=== PATIENT | female | born 1965 | race Caucasian/White ===

== ENCOUNTER 2016-05-13 13:55 | Emergency (ER) | payer OTHER, BC ==
[2016-05-13 14:05] VITALS: TEMP 98.8; BMI 25.0
[2016-05-13] MEDS ORDERED: HYDROmorphone HCL CARPU-JECT 2 MG/1 ML DISP.SYRIN IVPUSH ONE ×2 (14:39→17:13)
[2016-05-13] MEDS ORDERED: HYDROmorphone HCL CARPU-JECT 1 MG/1 ML DISP.SYRIN ONE ×2 (15:25→17:18)
[2016-05-13 15:29] LABS: BASOPHIL 0.9 % (0-2.0); EOSINOPHIL 3.4 % (0-4.5); MCH 26.1 pg (25.7-33.7); MCHC 32.3 g/dl (32.0-36.0); MEAN CELL VOLUME 80.9 fl (80-96); MEAN PLT VOLUME 11.1 fl (7.5-11.1); PLATELET COUNT 118 K/MM3 (134-434); WHITE BLOOD COUNT 6.7 K/mm3 (4.0-10.0)
--- NOTE | 2016-05-13 15:32 | PDOC ---
History of Present Illness - General Chief Complaint: Injury Stated Complaint: ANKLE PAIN Time Seen by Provider: 05/13/16 14:11 History Source: Patient Exam Limitations: No Limitations - History of Present Illness Initial Comments: 05/13/16 14:53 51-year-old female presents to the ED with complaints of left ankle and left posterior calf pain worsening in severity over the past 2 days. Patient states went to Dr. Casarez's office to told her to come to the ER for further evaluation since patient just recently completed Levaquin and prednisone and is also on Eliquis which was concerning for an Achilles tendon rupture. Patient denies recent injury to the affected area, sensory changes distal of discomfort, or difficulty breathing. Timing/Duration: getting worse, other (2 days) Severity: moderate Associated Symptoms: reports: other (troubling walking) Past History - Past Medical History Allergies/Adverse Reactions: Allergies Allergy/AdvReac Type Severity Reaction Status Date / Time metoclopramide HCl Allergy Severe Verified 05/13/16 14:16 [From Reglan] morphine AdvReac Severe Rash Verified 05/13/16 14:16 prochlorperazine edisylate AdvReac Severe Nausea Verified 05/13/16 14:16 [From Compazine] ciprofloxacin [From Cipro] AdvReac Intermediate Nausea Verified 05/13/16 14:16 erythromycin base AdvReac Intermediate Nausea Verified 05/13/16 14:16 [Erythromycin Base] Home Medications: Ambulatory Orders Amlodipine Besylate [Norvasc -] 5 mg PO DAILY 05/13/16 Apixaban [Eliquis] 2.5 mg PO BID 05/13/16 Carvedilol [Coreg] 25 mg PO DAILY 05/13/16 Esomeprazole Magnesium [Nexium 24Hr] 20 mg PO DAILY 05/13/16 Losartan Potassium 25 mg PO DAILY 05/13/16 Pregabalin [Lyrica] 100 mg PO BID 05/13/16 Simvastatin [Zocor -] 20 mg PO HS 05/13/16 Tacrolimus [Prograf] 1 mg PO BID 05/13/16 Asthma: Yes (asthma, bronchitis) Cancer: No Cardiac Disorders: Yes ([place] at age 18, s/p PCI) COPD: No GI Disorders: Yes (IBS,SIGMOID ADENOMA 2008 , BARRETTTS ESOPHAGUS, ESOPHAGEAL REFLUX) Disorders: Yes (UTI) HTN: Yes Hypercholesterolemia: Yes Suicide Attempt (Hx): No Thyroid Disease: Yes (THYROMEGALY W/ NORMAL THYROID FUCTION) - Surgical History Abdominal Surgery: Yes (GASTROSTOMY) Cardiac Surgery: Yes (DEFIB/PACEMAKER) - Immunization History Td Vaccination: Yes Immunization Up to Date: Yes - Psycho/Social/Smoking Cessation Hx Anxiety: Yes Suicidal Ideation: No Smoking Status: No Smoking History: Never smoked Years of Tobacco Use: 0 Have you smoked in the past 12 months: No Number of Cigarettes Smoked Daily: 0 Cigars Per Day: 0 Hx Alcohol Use: No Drug/Substance Use Hx: No Substance Use Type: None Hx Substance Use Treatment: No Patient Lives Alone: No Lives with/in: sister Review of Systems - Review of Systems Able to Perform ROS?: Yes Constitutional: No: Symptoms Reported Musculoskeletal: Yes: Joint Pain (left posterior ankle), Muscle Pain (left lower calf) Integumentary: Yes: Bruising Neurological: No: Symptoms reported Hematologic/Lymphatic: Yes: See HPI *Physical Exam - Vital Signs Last Vital Signs Temp Pulse Resp BP Pulse Ox 98.8 F 81 20 168/95 96 05/13/16 14:02 05/13/16 14:02 05/13/16 14:02 05/13/16 14:02 05/13/16 14:02 - Physical Exam General Appearance: Yes: Nourished, Appropriately Dressed. No: Apparent Distress Vascular Pulses: Doralis-Pedis (L): 2+ Extremity: positive: Normal Capillary Refill, Pedal Edema (1 + pitting). negative: Normal Inspection (noted edema to left mallelous), Normal Range of Motion (unable to dorsiflex left ankle) Integumentary: positive: Bruising (noted to posterior mallelous and heel) Neurologic: positive: Motor Strength 5/5 (ambulatory). negative: Sensory Deficit ED Treatment Course - LABORATORY CBC & Chemistry Diagram: 05/13/16 14:51 05/13/16 14:51 - ADDITIONAL ORDERS Additional order review: 05/13/16 14:51 RBC 4.31 MCV 80.9 MCHC 32.3 RDW 17.0 H D MPV 11.1 Neutrophils % 71.0 Lymphocytes % 19.1 D Monocytes % 5.6 Eosinophils % 3.4 D Basophils % 0.9 D - RADIOLOGY Radiology Studies Ordered: Category Date Time Status DUPLEX VASCUL US-1 LEG [US] Stat Ultrasound 05/13/16 14:45 Ordered - Medications Given in the ED: ED Medications Discontinued Medications Generic Name Dose Route Start Last Admin Trade Name Arnie PRN Reason Stop Dose Admin Hydromorphone HCl 0.5 mg 05/13/16 14:39 05/13/16 15:30 Dilaudid Injection - IVPUSH 05/13/16 14:40 0.5 mg ONCE ONE Administration Medical Decision Making - Medical Decision Making 05/13/16 14:54 Patient with left ankle and left heel pain over the past 2 days. Patient states no obvious injury or previous injury. Patient was seen by Dr. Salcedo who referred her to the ER secondary to likely Achilles tendon rupture. Patient ordered for basic labs including an ultrasound of the affected area and Dilaudid IV since patient has allergies to morphine and has history of kidney transplant 05/13/16 17:13 Laboratory Tests 05/13/16 05/13/16 05/13/16 14:51 14:51 14:51 WBC 6.7 Hgb 11.3 Hct 34.9 Plt Count 118 L Neutrophils % 71.0 INR 1.40 H D Sodium 144 Potassium 4.8 Chloride 111 H Carbon Dioxide 25 Anion Gap 8 BUN 25 H D Creatinine 1.2 H Random Glucose 100 D Total Bilirubin 0.4 AST 12 L D ALT 11 L D Ultrasound shows along the calcaneal region medially noted is hypoechoic nonspecific fluid collections / cyst measuring 1.3 x 1.3 x 1 cm. Regards to the Achilles tendon as well as a previous describes small fluid structure MRI evaluation suggested nonemergent unless otherwise clinically indicated. Case discussed with Dr. Salcedo who agrees patient may be discharged home with Tylenol, orthopedic shoe, [place] wrap and orthopedic referral. Patient requesting a second dose of Dilaudid and does not want Percocet to go home with. *DC/Admit/Observation/Transfer Diagnosis at time of Disposition: Achilles tendon injury Qualifiers: Encounter type: initial encounter Laterality: left Qualified Code(s): S86.002A - Unspecified injury of left Achilles tendon, initial encounter - Discharge Dispostion Disposition: HOME Condition at time of disposition: Good - Referrals Referrals: Jose Salcedo MD [Primary Care Provider] - Ishaan Huang MD [Staff Physician] - - Patient Instructions Printed Discharge Instructions: DI for Achilles Tendon Rupture, Achilles Tendinopathy Additional Instructions: Please take Tylenol 975 mg every 6-8 hours for discomfort apply ice, and use acewrap during the day but remove at night. Follow-up with referred orthopedist. Follow up with Dr. Casarez as discussed and return to ED if symptoms worsen
[2016-05-13 15:43] LABS: INR 1.4 (0.82-1.09); PROTHROMBIN TIME (PATIENT) 15.5 SEC (9.98-11.88)
[2016-05-13 15:56] LABS: ALBUMIN 3.6 g/dl (3.4-5.0); BILIRUBIN,TOTAL 0.4 mg/dL (0.2-1.0); CALCIUM 8.6 mg/dL (8.5-10.1); CREATININE 1.2 mg/dL (0.55-1.02); TOT PROT 6.6 g/dl (6.4-8.2)
[2016-05-13 17:42] VITALS: BP 149/70; PULSE 76
== END 2016-05-13 17:48 | disposition home or self-care (01) ==
LOC: SUPCPDRO 13:55 → JER 13:55
PROC: 3E033NZ Introduction of Analgesics, Hypnotics, Sedatives into Peripheral Vein, Percutaneous Approach (ICD-10-PCS; principal; 2016-05-13)
PROC: 3E033NZ Introduction of Analgesics, Hypnotics, Sedatives into Peripheral Vein, Percutaneous Approach (ICD-10-PCS; 2016-05-13)
DX: S86.092A Other specified injury of left Achilles tendon, initial encounter (principal); X58.XXXA Exposure to other specified factors, initial encounter; Y93.9 Activity, unspecified; Y92.019 Unspecified place in single-family (private) house as the place of occurrence of the external cause; J45.909 Unspecified asthma, uncomplicated; I25.2 Old myocardial infarction; I10 Essential (primary) hypertension; E78.00 Pure hypercholesterolemia, unspecified; Z87.19 Personal history of other diseases of the digestive system; Z95.810 Presence of automatic (implantable) cardiac defibrillator; Z93.1 Gastrostomy status
CPT/HCPCS: 36415; 80053; 85025; 85610; 93971-TC; 96374; 96376; 99285-25

== ENCOUNTER 2017-07-24 15:34 | Emergency (ER) | payer BC, OTHER ==
[2017-07-24 16:04] VITALS: BP 117/88; PULSE 78; TEMP 98.3; BMI 25.8
--- NOTE | 2017-07-24 17:04 | PDOC ---
*Physical Exam - Vital Signs Last Vital Signs Temp Pulse Resp BP Pulse Ox 98.3 F 78 16 117/88 100 07/24/17 16:01 07/24/17 16:01 07/24/17 16:01 07/24/17 16:01 07/24/17 16:01 - Physical Exam Comments: She has full range of motion of both shoulders and hips as well as her knees without tenderness. Her only complaint is left great toe tenderness. She is tender over the IPJ of the great toe is decreased range of motion without any gross sensorimotor deficits. 07/24/17 17:04 ED Treatment Course - RADIOLOGY Radiology Studies Ordered: Category Date Time Status ANKLE & FOOT-LEFT* [RAD] Stat Radiology 07/24/17 16:47 Ordered Medical Decision Making - Medical Decision Making Excises left foot great toe show no evidence of fracture trauma or obstructive process 07/24/17 17:11 *DC/Admit/Observation/Transfer Diagnosis at time of Disposition: Sprain of toe, great, left - Discharge Dispostion Disposition: HOME Condition at time of disposition: Stable Decision to Admit order: No - Referrals Referrals: Jose Salcedo MD [Primary Care Provider] - Ishaan Huang MD [Staff Physician] - - Patient Instructions Printed Discharge Instructions: Toe Sprain, DI for Toe Sprain Additional Instructions: He may weight-bear as tolerated follow up with orthopedic surgery return to the emergency room symptoms worsen or go unresolved. Or if she developed new symptoms. - Post Discharge Activity
== END 2017-07-24 17:16 | disposition home or self-care (01) ==
LOC: JERFT 15:34 → JER 15:34 → JERFT 17:16
DX: S93.512A Sprain of interphalangeal joint of left great toe, initial encounter (principal); X58.XXXA Exposure to other specified factors, initial encounter; Y93.9 Activity, unspecified; Y92.89 Other specified places as the place of occurrence of the external cause; Y99.8 Other external cause status
CPT/HCPCS: 73610-TC-LT-FY; 73630-TC-LT; 99281-25

== ENCOUNTER 2017-07-27 13:29 | Emergency (ER) | payer BC, OTHER ==
[2017-07-27] MEDS ORDERED: ACETAMINOPHEN 500 MG TABLET (FP) PO ONE (14:34)
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
[2017-07-27] MEDS ORDERED: diazePAM 5 MG TABLET PO ONE (14:48)
[2017-07-27] MEDS ORDERED: ACETAMINOPHEN 325 MG TABLET (FP) ONE (15:20)
[2017-07-27] MEDS ORDERED: diazePAM 5 MG TABLET ONE (15:21)
[2017-07-27 15:36] VITALS: BP 169/86; PULSE 70; TEMP 98.3; BMI 24.2
--- NOTE | 2017-07-28 11:57 | EKG ---
Test Reason : Blood Pressure : / mmHG Vent. Rate : 072 BPM Atrial Rate : 072 BPM P-R Int : 162 ms QRS Dur : 138 ms QT Int : 432 ms P-R-T Axes : 014 -08 119 degrees QTc Int : 473 ms Atrial-sensed ventricular-paced rhythm ABNORMAL ECG Confirmed by MD BENTON, DOREEN ([id number]) on 07/28/2017 11:56:21 AM Referred By: Confirmed By:DOREEN BHARDWAJ MD
== END 2017-07-27 16:51 | disposition home or self-care (01) ==
LOC: JER 13:29
DX: V03.90XA Pedestrian on foot injured in collision with car, pick-up truck or van, unspecified whether traffic or nontraffic accident, initial encounter (principal); Y92.481 Parking lot as the place of occurrence of the external cause; Y93.89 Activity, other specified; Y99.8 Other external cause status; I25.10 Atherosclerotic heart disease of native coronary artery without angina pectoris; I10 Essential (primary) hypertension; Z95.5 Presence of coronary angioplasty implant and graft; J45.909 Unspecified asthma, uncomplicated; I48.91 Unspecified atrial fibrillation; Z95.810 Presence of automatic (implantable) cardiac defibrillator; Z93.1 Gastrostomy status
CPT/HCPCS: 71045-TC-FY; 72100-TC-FY; 73523-TC-FY; 73562-TC-LT-FY; 93005; 93010; 99281-25

== ENCOUNTER 2019-10-27 20:39 | Inpatient (IN) | payer OTHER, BC ==
[2019-10-27] MEDS ORDERED: AMIODARONE HCL INJECTION 450 MG in DEXTROSE 5%-WATER - 241 ML IVPB ONE (21:02)
[2019-10-27] MEDS ORDERED: AMIODARONE HCL INJECTION 150 MG in DEXTROSE 5%-WATER - 100 ML IVPB ONE (21:02)
[2019-10-27] MEDS ORDERED: ACETAMINOPHEN INJECTION 100 ML IVPB ONE (21:19)
[2019-10-27] MEDS ORDERED: ACETAMINOPHEN 1000 MG/100 ML VIAL (NON FORMULARY) IVPB ONE (21:20)
[2019-10-27 21:31] LABS: BASO % 1.3 % (0-2.0); EOS % 5.4 % (0-4.5); HEMATOCRIT 40.7 % (32.4-45.2); HEMOGLOBIN 13.4 GM/dL (10.7-15.3); MCH 29.4 pg (25.7-33.7); MEAN CELL VOLUME 89.1 fl (80-96); MEAN PLT VOLUME 11.2 fl (7.5-11.1); MONO % 8.6 % (3.8-10.2); NEUT % 57.7 % (42.8-82.8); PLATELET COUNT 134 K/MM3 (134-434); RBC 4.57 M/mm3 (3.60-5.2); RDW 14.7 % (11.6-15.6); WHITE BLOOD COUNT 4.5 K/mm3 (4.0-10.0)
[2019-10-27 21:32] LABS: VENOUS BASE EXCESS -1.6 mmol/L (-2-2); VENOUS O2 SATURATION 94.7 % (70-80); VENOUS PCO2 38.9 mmHg (38-52); VENOUS PH 7.39 (7.310-7.410)
[2019-10-27 21:38] LABS: INR 0.87 (0.83-1.09); PROTHROMBIN TIME (PATIENT) 10.3 SEC (9.7-13.0)
[2019-10-27 21:40] LABS: ACTIVATED PTT 34.8 SECONDS (25.2-36.5)
[2019-10-27] MEDS ORDERED: AMIODARONE HCL 150 MG/3 ML VIAL ONE (21:41)
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
--- NOTE | 2019-10-27 21:51 | PDOC ---
History of Present Illness - General Chief Complaint: Chest Pain Stated Complaint: POSSIBLE HEART FAILURE Time Seen by Provider: 10/27/19 20:54 History Source: Patient Exam Limitations: No Limitations - History of Present Illness Initial Comments: 10/27/19 23:49 54F PMH CAD s/p AICD, HTN, HLD, CKD s/p renal transplant (prograft), chronic bronchitis sent in by Pediatric Radiologist for 1 day of right sided chest pain, substernal chest pressure, and shortness of breath. Pt was shocked by AICD (medtronic) yesterday, found by radio engineering teacher to have been in VF. No recent f/c/n/v. allergies reviewed. Past History - Medical History Allergies/Adverse Reactions: Allergies Allergy/AdvReac Type Severity Reaction Status Date / Time metoclopramide HCl Allergy Severe Verified 07/27/17 14:07 [From Reglan] morphine AdvReac Severe Rash Verified 07/27/17 14:07 prochlorperazine edisylate AdvReac Severe Nausea Verified 07/27/17 14:07 [From Compazine] ciprofloxacin [From Cipro] AdvReac Intermediate Nausea Verified 07/27/17 14:07 erythromycin base AdvReac Intermediate Nausea Verified 07/27/17 14:07 [Erythromycin Base] Home Medications: Ambulatory Orders Pregabalin [Lyrica] 100 mg PO BID 05/13/16 Tacrolimus [Prograf] 1 mg PO BID 05/13/16 Amlodipine Besylate 10/27/19 Esomeprazole Magnesium [Nexium 24Hr] 40 mg PO DAILY 10/27/19 Metoprolol Tartrate 75 mg PO BID 10/27/19 Asthma: Yes (asthma, bronchitis) Cancer: No Cardiac Disorders: Yes (MT at age 18, s/p PCI) COPD: No GI Disorders: Yes (IBS,SIGMOID ADENOMA 2008 , BARRETTTS ESOPHAGUS, ESOPHAGEAL REFLUX) Disorders: Yes (UTI) HTN: Yes Hypercholesterolemia: Yes Thyroid Disease: Yes (THYROMEGALY W/ NORMAL THYROID FUCTION) - Surgical History Abdominal Surgery: Yes (GASTROSTOMY) Cardiac Surgery: Yes (DEFIB/PACEMAKER) - Immunization History Td Vaccination: Yes Immunization Up to Date: Yes - Psycho-Social/Smoking History Smoking Status: No Smoking History: Never smoked Years of Tobacco Use: 0 Have you smoked in the past 12 months: No Number of Cigarettes Smoked Daily: 0 Cigars Per Day: 0 - Substance Abuse Hx (Audit-C & DAST Scrn) How often the patient has a drink containing alcohol: Never Score: In Men: 4 or > Positive; In Women: 3 or > Positive: 0 Screen Result (Pos requires Nsg. Audit-10AR): Negative Review of Systems - Review of Systems Comments:: 10/27/19 23:49 CONSTITUTIONAL: Denies F / C RESP: +sob; chronic cough CARD: + chest pain GI: Denies N / V LIMITED 2/2 ACUITY *Physical Exam - Vital Signs Last Vital Signs Temp Pulse Resp BP Pulse Ox 98.3 F 94 H 20 115/76 94 L 10/27/19 20:43 10/27/19 20:43 10/27/19 20:43 10/27/19 20:43 10/27/19 20:43 - Physical Exam 10/27/19 23:49 GEN: uncomfortable. AAOx3. HEENT: NC/AT. No facial asymmetry. Normal voice. Supple neck w/ FROM. CV: S1/S2, RRR, no m/r/g. AICD palpated on Right chest wall - tender. LUN% SaO2 on 4L NC. Speaks in few word sentences with increased respiratory effort. Orthopnic. CTAB, no wheezes, crackles, rales, rhonchi. GI: Soft, ndnt, +BS, no guarding, no rebound. No masses. MSK: No obvious deformities of all extremities. SKIN: Warm, dry, no rashes appreciated. PSYCH: Normal mood and affect. NEURO: Moving all extremities ED Treatment Course - LABORATORY CBC & Chemistry Diagram: 10/27/19 21:15 10/27/19 21:15 - ADDITIONAL ORDERS Additional order review: Laboratory Results 10/27/19 10/27/19 21:15 21:15 PT with INR 10.30 INR 0.87 PTT (Actin FS) 34.8 VBG pH 7.390 POC VBG pCO2 38.9 POC VBG pO2 73.6 H VBG HCO3 23.0 VBG O2 Sat ([place]) 94.7 H VBG Base Excess -1.6 10/27/19 21:15 RBC 4.57 MCV 89.1 MCHC 33.0 RDW 14.7 D MPV 11.2 H Neutrophils % 57.7 Lymphocytes % 27.0 D Monocytes % 8.6 Eosinophils % 5.4 H Basophils % 1.3 - RADIOLOGY Radiology Studies Ordered: Category Date Time Status CHEST X-RAY PORTABLE* [RAD] Stat Radiology 10/27/19 20:55 Ordered - Medications Given in the ED: ED Medications Discontinued Medications Generic Name Dose Route Start Last Admin Trade Name Arnie PRN Reason Stop Dose Admin Acetaminophen 1,000 mg 10/27/19 21:20 10/27/19 21:24 Ofirmev Injection - IVPB 10/27/19 21:21 1,000 mg ONCE ONE Administration Medical Decision Making - Medical Decision Making 10/27/19 21:50 54F w/ cp and sob; was shocked yesterday by AICD 2/2 VF. - labs - engine monitor - cxr - Dr. Edin sarabia Cardiology Dr. Mena - aware, rec amio and lasix - low threshold for BiPAP - bedside US w/o florid b-lines - patient took PM dose of prograft - admit EKG 20:56 HR 69, paced, no ALAN/D or TWI versus 07/27/17 EKG. 10/27/19 22:10 Dr. Edin Dasilva - renal aware 10/27/19 23:40 pt still c/o pain - giving 0.5mg dilaudid. Will give additional 0.5mg if not sufficient pain control. endorsed to hospitalist team for admission Discharge - Discharge Information Problems reviewed: Yes Clinical Impression/Diagnosis: Renal transplant recipient, Pain, Ischemic cardiomyopathy, Heart failure, Chest pain, Dyspnea, Ventricular dysrhythmia Condition: Guarded - Admission Yes - Follow up/Referral Referrals: Jose Salcedo MD [Primary Care Provider] - - Patient Discharge Instructions - Post Discharge Activity
[2019-10-27 22:05] LABS: ALK PHOS 98 U/L (45-117); ANION GAP 5 MMOL/L (8-16); BILIRUBIN,TOTAL 0.3 mg/dL (0.2-1); BLOOD UREA NITROGEN 26.5 mg/dL (7-18); CALCIUM 9.5 mg/dL (8.5-10.1); CHLORIDE 109 mmol/L (98-107); CO2 27 mmol/L (21-32); CREATININE 1.3 mg/dL (0.55-1.3); GLUCOSE,RANDOM 121 mg/dL (74-106); POTASSIUM 5.3 mmol/L (3.5-5.1); SGOT/AST 20 U/L (15-37); SGPT/ALT 17 U/L (13-61); SODIUM 142 mmol/L (136-145); TOT PROT 7.3 g/dl (6.4-8.2)
[2019-10-27] MEDS ORDERED: FUROSEMIDE 40 MG/4 ML INJECTABLE VIAL IVPUSH ONE (22:10)
[2019-10-27 22:36] LABS: MAGNESIUM 1.9 mg/dL (1.8-2.4)
[2019-10-27] MEDS ORDERED: FUROSEMIDE 40 MG/4 ML INJECTABLE VIAL ONE (23:03)
--- NOTE | 2019-10-27 23:10 | PN ---
Teaching Attending Note Name of Resident: Sangita Acharya ATTENDING PHYSICIAN STATEMENT I saw and evaluated the patient. I reviewed the resident's note and discussed the case with the resident. I agree with the resident's findings and plan as documented. SUBJECTIVE: Patient is a 54 year old woman with a PMH of Kidney transplant, CAD, Cataracts, Neuropathy, Pacemaker placement, Pulmonary hemorrhage due to Eliquis (long stay in ICU; reversed tracheostomy), Afib, Asthma, [place] (at age 18 s/p PCI), IBS, Sigmoid adenoma (age 18), Lundy's esophagus and Thyromegaly who presents to the ER with right-sided chest pain and SOB that started today. She saw her core placer, Dr. Vasquez 2 days ago - was in Vtach and Afib and was shocked. Reports a chronic cough that she has been present for the past 3 years. Patient denies abdominal pain, headache, palpitations, dizziness, fever, chills, nausea, vomiting, diarrhea, constipation, dysuria, frequency, urgency, melena, hematochezia or hematuria. Denies alcohol, tobacco or illicit drug use. No sick contacts or recent travels. Family history of aneurysm in brother; father had CABG and mother TN both in their 60s. OBJECTIVE: Alert Vital Signs Period Temp Pulse Resp BP Sys/Bass Pulse Ox Last 24 Hr 98.3 F 94 20 115/76 94 HEENT: No Jaundice, eye redness or discharge, PERRLA, EOMI. Normocephalic, atraumatic. External ears are normal and hearing is grossly intact. No nasal discharge. Neck: Supple, nontender. No palpable adenopathy or thyromegaly. No JVD Chest: Good effort. Pacemaker right chest wall; chest wall tenderness; bibasilar crackles. Heart: Regular. No S3, rub or murmur Abdomen: Not distended, soft, nontender and no HSM. No rebound or guarding. Normal bowel sounds. Ext: Peripheral pulses intact. Leg edema. Right arm AV fistula with good thrill and bruit. Skin: Warm and dry. No petechiae, rash or ecchymosis. Neuro: Alert. Oriented x3. CN 2-12 grossly intact. Sensation grossly intact in all four extremities and DTR are symmetric. Psych: Appropriate mood and affect. Good insight. Home Medications Medication Instructions Recorded Pregabalin [Lyrica] 100 mg PO BID 05/13/16 Tacrolimus [Prograf] 1 mg PO BID 05/13/16 Amlodipine Besylate 10/27/19 Esomeprazole Magnesium [Nexium 40 mg PO DAILY 10/27/19 24Hr] Metoprolol Tartrate 75 mg PO BID 10/27/19 Abnormal Lab Results 10/27/19 10/27/19 10/27/19 21:15 21:15 21:15 MPV 11.2 H Eosinophils % 5.4 H POC VBG pO2 VBG O2 Sat ([place]) Potassium 5.3 H Chloride 109 H Anion Gap 5 L BUN 26.5 H Random Glucose 121 H B-Natriuretic Peptide 1626.2 H 10/27/19 21:15 MPV Eosinophils % POC VBG pO2 73.6 H VBG O2 Sat ([place]) 94.7 H Potassium Chloride Anion Gap BUN Random Glucose B-Natriuretic Peptide Current Medications Generic Name Dose Route Start Last Admin Trade Name Freq PRN Reason Stop Dose Admin Amiodarone HCl 450 mg/ 250 mls @ 33.333 mls/hr 10/27/19 21:02 10/27/19 22:00 Dextrose IVPB 10/28/19 04:31 1 mg/min TITR ONE 33.333 mls/hr Administration Protocol 1 MG/MIN ASSESSMENT AND PLAN: 1. Chest pain/?CHF - Chest pain and ?CHF may be related to recent arrhythmia. EKG shows atrial-sensed ventricular-paced rhythm at 69/minute and QTc [address]-T wave changes. Initial troponin is negative. Will avoid drugs that may prolong QTc. CXR shows cardiomegaly, right side pacemaker, increased interstitial markings and elevated right hemidiaphragm. ER staff discussed the case with the Metal Slitter and patient started on IV Amiodarone drip and IV Lasix. Will admit to telemetry, trend troponin, get ECHO, treat with IV Lasix to achieve adequate diuresis, restrict dietary salt intake, monitor renal function, monitor and replete electrolytes, get daily weight and consult Cardiology. Mild hyperkalemia is unexplained but should improve with IV Lasix. Viral testing for COVID-19 ordered and patient placed on airborne, droplet and contact isolation. Will continue comprehensive care for all of patients comorbid conditions. 2. Hypertension Will restart suitable outpatient antihypertensive drugs when clinically appropriate. Subsequently, will revise regimen to ensure [id number] excellent BP control. Patient counseled on the injurious effects of uncontrolled hypertension. Nonpharmacologic measures to control hypertension like weight loss, salt restriction and exercise stressed. Importance of adherence to treatment regimen and attainment of normotension emphasized. 3. DVT prophylaxis - Lovenox 40 mg SQ q 24 hours. 4. Advance directives - Full code
[2019-10-27] MEDS ORDERED: HYDROmorphone HCL CARPU-JECT 2 MG/1 ML DISP.SYRIN IVPUSH ONE (23:30)
[2019-10-27] MEDS ORDERED: HYDROmorphone HCl 2 MG/ML VIAL ONE (23:32)
[2019-10-28 01:12] LABS: URINE APPEARANCE CLEAR; URINE BILIRUBIN NEGATIVE (NEGATIVE); URINE COLOR YELLOW; URINE GLUCOSE (UA) NEGATIVE (NEGATIVE); URINE KETONE NEGATIVE (NEGATIVE); URINE LEUK ESTERASE NEGATIVE (NEGATIVE); URINE NITRITE NEGATIVE (NEGATIVE); URINE PROTEIN NEGATIVE (NEGATIVE); URINE UROBILINOGEN 0.2 mg/dL (0.2-1.0)
[2019-10-28] MEDS ORDERED: ACETAMINOPHEN INJECTION 100 ML IVPB ONE (03:40)
[2019-10-28] MEDS ORDERED: ACETAMINOPHEN 1000 MG/100 ML VIAL (NON FORMULARY) IVPB ONE (03:45)
--- NOTE | 2019-10-28 05:26 | HP ---
CHIEF COMPLAINT: R sided and substernal CP and shortness of breath PCP: Dr. Salcedo HISTORY OF PRESENT ILLNESS: Pt is a 54 yo F with a PMH of kidney transplants (in 1997 and 2004), CAD, cataracts, neuropathy, pacemaker (AICD) placement, pulmonary hemorrhage due to eliquis (long stay in ICU; reversed tracheostomy), Afib, Asthma, [place] (at age 18 s/p PCI), IBS, Sigmoid adenoma (age 18), Lundy's esophagus and Thyromegaly who presents to the ER with right-sided and substernal chest pain with SOB that started today. She saw her language therapist, Dr. Vasquez 2 days ago - was in Vtach and Afib and was shocked by her pacemaker. She reports a chronic cough that she has been present for the past 3 years. Both types of chest pain started earlier on 10/27/2019. R sided chest pain is 5/10 and reproducible with palpation; substernal CP 6/10 initially, constant pressure like and radiating to L arm. Progressively worsened to 9/10. A/w SOB, nausea, slight increase in LE edema, fatigue, fatigue, and orthopnea. No PND. Denies fevers, chills, diarrhea, constipation, weakness, or decrease in appetite. No urinary changes as well. Pt did not take anything to improve the pain. Decided to come to the ED after pain and SOB progressively worsened. Pt's pain now 5/10. ER course was notable for: (1)Cardiology consulted by ED; amiodarone drip and IV lasix recommended and then started. (2)Nephrology consulted by ED Recent Travel: none Sick contacts: none PAST MEDICAL HISTORY: as per HPI PAST SURGICAL HISTORY: as per HPI Family Hx - mother with LA in 60s; father with coronary bypass in 60s Social History: Lives at home with mother; unemployed since kidney transplants. Smoking:denies Alcohol:denies Drugs: denies Allergies metoclopramide HCl [From Reglan] Allergy (Severe, Verified 07/27/17 14:07) TREMORS morphine Adverse Reaction (Severe, Verified 07/27/17 14:07) Rash prochlorperazine edisylate [From Compazine] Adverse Reaction (Severe, Verified 07/27/17 14:07) Nausea ciprofloxacin [From Cipro] Adverse Reaction (Intermediate, Verified 07/27/17 14:07) Nausea erythromycin base [Erythromycin Base] Adverse Reaction (Intermediate, Verified 07/27/17 14:07) Nausea HOME MEDICATIONS: Home Medications Medication Instructions Recorded Pregabalin [Lyrica] 100 mg PO BID 05/13/16 Tacrolimus [Prograf] 1 mg PO BID 05/13/16 Amlodipine Besylate 10/27/19 Esomeprazole Magnesium [Nexium 40 mg PO DAILY 10/27/19 24Hr] Metoprolol Tartrate 75 mg PO BID 10/27/19 Tacrolimus Anhydrous [Prograf] 1.5 mg PO DAILY 10/28/19 REVIEW OF SYSTEMS as per hpi. PHYSICAL EXAMINATION Vital Signs - 24 hr 10/27/19 10/27/19 20:43 23:37 Temperature 98.3 F Pulse Rate 94 H Pulse Rate [ 63 Right] Respiratory 20 18 Rate Blood Pressure 115/76 Blood Pressure 154/71 [Right Arm] O2 Sat by Pulse 94 L 100 Oximetry (%) GENERAL: Awake, alert, and fully oriented, in no acute distress. Appears older than her age. HEAD: Normal with no signs of trauma. EYES: Pupils equal, round and reactive to light, extraocular movements intact, sclera anicteric, conjunctiva clear. EARS, NOSE, THROAT: oropharynx clear without exudates. Moist mucous membranes. NECK: Normal range of motion, supple without lymphadenopathy LUNGS: Crackles at bilateral bases. No accessory muscle use. Chest: generalized tenderness over chest; worse on R side near side of pacemaker HEART: Regular rate and rhythm, normal S1 and S2 without murmur, rub or gallop. ABDOMEN: Soft, nontender, not distended, normoactive bowel sounds. MUSCULOSKELETAL: Moving all extremities equally and spontaneously UPPER EXTREMITIES: 2+ pulses, warm, well-perfused. No peripheral edema. L forearm fistula with bruit and thrill. LOWER EXTREMITIES: 2+ pulses, warm, well-perfused. No calf tenderness. Trace pitting edema just above ankles b/l NEUROLOGICAL: Sensation intact b/l. Normal speech. Normal gait. PSYCHIATRIC: Cooperative. Good eye contact. Appropriate mood and affect. SKIN: Warm, dry, normal turgor, no rashes or lesions noted. Laboratory Results - last 24 hr 10/27/19 10/27/19 10/27/19 21:15 21:15 21:15 WBC 4.5 RBC 4.57 Hgb 13.4 Hct 40.7 D MCV 89.1 MCH 29.4 D MCHC 33.0 RDW 14.7 D Plt Count 134 MPV 11.2 H Absolute Neuts (auto) 2.6 Neutrophils % 57.7 Lymphocytes % 27.0 D Monocytes % 8.6 Eosinophils % 5.4 H Basophils % 1.3 Nucleated RBC % 0 PT with INR 10.30 INR 0.87 PTT (Actin FS) 34.8 VBG pH POC VBG pCO2 POC VBG pO2 VBG HCO3 VBG O2 Sat ([place]) VBG Base Excess Sodium 142 Potassium 5.3 H Chloride 109 H Carbon Dioxide 27 Anion Gap 5 L BUN 26.5 H Creatinine 1.3 Est GFR (CKD-EPI)AfAm 53.48 Est GFR (CKD-EPI)NonAf 46.15 Random Glucose 121 H Calcium 9.5 Magnesium 1.9 Total Bilirubin 0.3 AST 20 ALT 17 Alkaline Phosphatase 98 Creatine Kinase 49 Troponin I < 0.02 B-Natriuretic Peptide Total Protein 7.3 Albumin 4.0 TSH 2.73 Urine Color Urine Appearance Urine pH Ur Specific Lamar Urine Protein Urine Glucose (UA) Urine Ketones Urine Blood Urine Nitrite Urine Bilirubin Urine Urobilinogen Ur Leukocyte Esterase Blood Type Antibody Screen 10/27/19 10/27/19 10/27/19 21:15 21:15 21:15 WBC RBC Hgb Hct MCV MCH MCHC RDW Plt Count MPV Absolute Neuts (auto) Neutrophils % Lymphocytes % Monocytes % Eosinophils % Basophils % Nucleated RBC % PT with INR INR PTT (Actin FS) VBG pH 7.390 POC VBG pCO2 38.9 POC VBG pO2 73.6 H VBG HCO3 23.0 VBG O2 Sat ([place]) 94.7 H VBG Base Excess -1.6 Sodium Potassium Chloride Carbon Dioxide Anion Gap BUN Creatinine Est GFR (CKD-EPI)AfAm Est GFR (CKD-EPI)NonAf Random Glucose Calcium Magnesium Total Bilirubin AST ALT Alkaline Phosphatase Creatine Kinase Troponin I B-Natriuretic Peptide 1626.2 H Total Protein Albumin TSH Urine Color Urine Appearance Urine pH Ur Specific Lamar Urine Protein Urine Glucose (UA) Urine Ketones Urine Blood Urine Nitrite Urine Bilirubin Urine Urobilinogen Ur Leukocyte Esterase Blood Type O POSITIVE Antibody Screen Negative 10/28/19 10/28/19 00:37 03:36 WBC RBC Hgb Hct MCV MCH MCHC RDW Plt Count MPV Absolute Neuts (auto) Neutrophils % Lymphocytes % Monocytes % Eosinophils % Basophils % Nucleated RBC % PT with INR INR PTT (Actin FS) VBG pH POC VBG pCO2 POC VBG pO2 VBG HCO3 VBG O2 Sat ([place]) VBG Base Excess Sodium Potassium Chloride Carbon Dioxide Anion Gap BUN Creatinine Est GFR (CKD-EPI)AfAm Est GFR (CKD-EPI)NonAf Random Glucose Calcium Magnesium Total Bilirubin AST ALT Alkaline Phosphatase Creatine Kinase Troponin I < 0.02 B-Natriuretic Peptide Total Protein Albumin TSH Urine Color Yellow Urine Appearance Clear Urine pH 5.0 Ur Specific Lamar 1.007 L Urine Protein Negative Urine Glucose (UA) Negative Urine Ketones Negative Urine Blood Negative Urine Nitrite Negative Urine Bilirubin Negative Urine Urobilinogen 0.2 Ur Leukocyte Esterase Negative Blood Type Antibody Screen ASSESSMENT/PLAN: Pt is a 54 yo F with a PMH of kidney transplants (in 1997 and 2004), CAD, cataracts, neuropathy, pacemaker (AICD) placement, pulmonary hemorrhage due to eliquis (long stay in ICU; reversed tracheostomy), Afib, Asthma, [place] (at age 18 s/p PCI), IBS, Sigmoid adenoma (age 18), Lundy's esophagus and Thyromegaly who presents to the ER with right-sided chest as well as substernal chest pain and SOB that started today. Pt being admitted for evaluation and treatment of possible unstable angina as well as a possible CHF exacerbation. #Chest Pain (possible unstable angina) initial trop neg; no EKG changes but with substernal pressure like pain radiating to L arm may be associated with recent arrhythmia r/o ACS - trend trops, EKG in the AM - IV tylenol for pain - ASA 81 #Possible CHF exacerbation (may be associated with recent arrythmia) no ECHO previous ECHO in EMR BNP 1626.2 CXR showing cardiomegaly, right side pacemaker, increased interstitial markings and elevated right hemidiaphragm - Cardiology consulted by ED; IV amiodarone drip and IV lasix 40 recommended - IV lasix 40 bid ordered for now; adjust as per day team/cardiology discretion - stricts Is/Os - daily weights - ECHO ordered #Mild hyperK (5.3) - asymptomatic, no EKG changes - renal diet - should improve with lasix #Kidney transplant hx - home prograf 1.5 mg AM; 1 mg PM #HTN Hx - home metoprolol 75 bid - home amlodipine dose not confirmed; can start after confirmation #Neuropathy hx (etiology unknown) - home lyrica 100 mg bid #DVT PPx - SCDs for now (mechanical ppx with hx of long icu stay for pulm hemorrhage on eliquis) #FEN -F- no IVF for now -E- monitor lytes, replete PRN -N- low sodium, renal diet #Dispo - Admit to telemetry Family Medical History Family History: As Documented Visit type - Emergency Visit Emergency Visit: Yes ED Registration Date: 10/27/19 Care time: The patient presented to the Emergency Department on the above date and was hospitalized for further evaluation of their emergent condition. - New Patient This patient is new to me today: Yes Date on this admission: 10/28/19 - Critical Care Critical Care patient: No ATTENDING PHYSICIAN STATEMENT I saw and evaluated the patient. I reviewed the resident's note and discussed the case with the resident. I agree with the resident's findings and plan as documented. SUBJECTIVE: OBJECTIVE: ASSESSMENT AND PLAN:
[2019-10-28 05:44] LABS: ALK PHOS 85 U/L (45-117); ANION GAP 8 MMOL/L (8-16); BILIRUBIN,TOTAL 0.4 mg/dL (0.2-1); BLOOD UREA NITROGEN 25.6 mg/dL (7-18); CALCIUM 9.6 mg/dL (8.5-10.1); CHLORIDE 106 mmol/L (98-107); CO2 27 mmol/L (21-32); CREATININE 1.4 mg/dL (0.55-1.3); GLUCOSE,RANDOM 171 mg/dL (74-106); MAGNESIUM 1.8 mg/dL (1.8-2.4); PHOSPHOROUS 4.7 mg/dL (2.5-4.9); POTASSIUM 4.9 mmol/L (3.5-5.1); SGOT/AST 26 U/L (15-37); SGPT/ALT 16 U/L (13-61); SODIUM 140 mmol/L (136-145); TOT PROT 7.2 g/dl (6.4-8.2)
[2019-10-28] MEDS ORDERED: FUROSEMIDE 40 MG/4 ML INJECTABLE VIAL ONE ×2 (06:12→15:00)
[2019-10-28] MEDS ORDERED: AMIODARONE IN DEXTROSE,ISO-OSM 360 MG/200 ML BAG IVPB SCH (06:15)
[2019-10-28] MEDS: FUROSEMIDE 40 MG/4 ML INJECTABLE VIAL IVPUSH SCH ×2 (06:31→15:00)
[2019-10-28] MEDS ORDERED: AMIODARONE IN DEXTROSE,ISO-OSM 360 MG/200 ML BAG ONE (06:34)
[2019-10-28] MEDS ORDERED: PANTOPRAZOLE 40 MG TABLET ONE (06:42)
[2019-10-28] MEDS: PANTOPRAZOLE 40 MG TABLET PO SCH ×2 (07:10→07:16)
--- NOTE | 2019-10-28 07:54 | CON.CARD ---
Consult Consult Specialty:: Cardiology Referred by:: Hospitalist Medicine Reason for Consultation:: Ischemic cardiomyopathy - History of Present Illness Chief Complaint: Dyspnea, ICD shock History of Present Illness: 54-year-old female with history of coronary artery disease status post myocardial infarction at age 18 status post percutaneous coronary intervention/report of procedure not available angina pectoris, systolic left ventricular dysfunction related to ischemic dilated cardiomyopathy with chronic class I-II [place] Heart Association classification left ventricular failure (LVEF between 20-25% on echocardiography performedApril 28, 2019), sustained ventricular tachycardia post USER EXPERIENCE MANAGER-D/[employer] MRI conditional device (Amplia MRI- [id number]/SureScan), paroxysmal atrial fibrillation currently off of anticoagulation therapy related to hemoptysis [id number] score of 4 (Hemoptysis noted on Eliquis therapy)-(left atrial appendage closure device implantation/Watchman device implantation was recommended as an alternative but patient thus far has declined), paroxysmal supraventricular tachycardia cannot exclude paroxysmal atypical atrial flutter, mitral valve regurgitation mild to moderate in severity on echocardiography performed March 10, 2018/mild in severity on echocardiography performed April 28, 2019, tricuspid valve regurgitation trace in severity with no evidence of pulmonary hypertension on echocardiography performed March 10, 2018/April 28, 2019-RVSP of 14 mm Hg, hypertensive cardiovascular disease/labile blood pressure, hypercholesterolemia, trace pericardial effusion on echocardiography performed March 10, 2018, seizure disorder, chronic bronchitis, gastroesophageal reflux disease with Lundy's esophagus and chronic kidney disease post renal transplantation who last was [id number]/12/2020 for appropriate ICD shock c/w paroxysmal ventricular tachycardia presented to ED for right-sided chest pain and SOB associated with orthopnea, denies recurrent ICD shock, palpitations, near or true syncope, receiving IV diuresis and afterload reduction. 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), Renal Inusuff - Past Surgical History Past Surgical History: Yes: Hysterectomy, Kidney Transplant (times two 1997, 2004), Permanent Pacemaker (defibrillator) - Alcohol/Substance Use Hx Alcohol Use: No History of Substance Use: reports: None - Smoking History Smoking history: Never smoked Have you smoked in the past 12 months: No Aproximately how many cigarettes per day: 0 - Social History Usual Living Arrangement: With Parent ADL: Family Assistance Occupation: unemployed History of Recent Travel: No Home Medications - Allergies Allergies/Adverse Reactions: Allergies Allergy/AdvReac Type Severity Reaction Status Date / Time metoclopramide HCl Allergy Severe Verified 07/27/17 14:07 [From Reglan] morphine AdvReac Severe Rash Verified 07/27/17 14:07 prochlorperazine edisylate AdvReac Severe Nausea Verified 07/27/17 14:07 [From Compazine] ciprofloxacin [From Cipro] AdvReac Intermediate Nausea Verified 07/27/17 14:07 erythromycin base AdvReac Intermediate Nausea Verified 07/27/17 14:07 [Erythromycin Base] - Home Medications Home Medications: Ambulatory Orders Pregabalin [Lyrica] 100 mg PO BID 05/13/16 Tacrolimus [Prograf] 1 mg PO BID 05/13/16 Amlodipine Besylate 10/27/19 Esomeprazole Magnesium [Nexium 24Hr] 40 mg PO DAILY 10/27/19 Metoprolol Tartrate 75 mg PO BID 10/27/19 Tacrolimus Anhydrous [Prograf] 1.5 mg PO DAILY 10/28/19 Review of Systems - Review of Systems Cardiovascular: reports: Chest Pain, Shortness of Breath Respiratory: reports: Exercise Intolerance, Orthopnea, SOB, SOB on Exertion Vital Signs: Vital Signs Temperature 97.2 F L 10/28/19 06:16 Pulse Rate 62 10/28/19 06:16 Respiratory Rate 16 10/28/19 06:16 Blood Pressure 108/80 10/28/19 06:16 O2 Sat by Pulse Oximetry (%) 97 10/28/19 06:16 Constitutional: Yes: No Distress, Anxious Neck: Yes: Supple Respiratory: Yes: Diminished, On Nasal O2, SOB Gastrointestinal: Yes: Soft, Hypoactive Bowel Sounds Cardiovascular: Yes: Regular Rate and Rhythm JVD: No Carotid Bruit: No Heart Sounds: Yes: S1, S2 Edema: No - Other Data Labs, Other Data: CBC, BMP 10/27/19 21:15 10/28/19 03:36 INR, PTT INR 0.87 (0.83-1.09) 10/27/19 21:15 Troponin, BNP 10/27/19 10/27/19 10/28/19 21:15 21:15 03:36 Troponin I < 0.02 < 0.02 B-Natriuretic Peptide 1626.2 H Troponin, BNP 10/27/19 10/27/19 10/28/19 21:15 21:15 03:36 Troponin I < 0.02 < 0.02 B-Natriuretic Peptide 1626.2 H AV paced Prior Cardiac Procedures: PTCA with Stent Ejection Fraction %: LVEF < 40 % Imaging - Results Chest X-ray: Report Reviewed (Cardiomegaly, clear lungs) Problem List - Problems (1) Chest pain Code(s): R07.9 - CHEST PAIN, UNSPECIFIED Qualifiers: Chest pain type: precordial pain Qualified Code(s): R07.2 - Precordial pain (2) Dyspnea Code(s): R06.00 - DYSPNEA, UNSPECIFIED Qualifiers: Dyspnea type: shortness of breath Qualified Code(s): R06.02 - Shortness of breath; R06.00 - Dyspnea, unspecified; R06.01 - Orthopnea (3) Heart failure Code(s): I50.9 - HEART FAILURE, UNSPECIFIED Qualifiers: Heart failure type: combined systolic and diastolic Heart failure chronicity: acute on chronic Qualified Code(s): I50.43 - Acute on chronic combined systolic (congestive) and diastolic (congestive) heart failure (4) Ventricular dysrhythmia Code(s): I49.9 - CARDIAC ARRHYTHMIA, UNSPECIFIED (5) Ischemic cardiomyopathy Code(s): I25.5 - ISCHEMIC CARDIOMYOPATHY (6) Renal transplant recipient Code(s): Z94.0 - KIDNEY TRANSPLANT STATUS (7) CAD (coronary artery disease) Code(s): I25.10 - ATHSCL HEART DISEASE OF [place] CORONARY ARTERY W/O ANG PCTRS Qualifiers: Coronary Disease-Associated Artery/Lesion type: [place] artery [place] vs. transplanted heart: [place] heart Associated angina: without angina Qualified Code(s): I25.10 - Atherosclerotic heart disease of [place] coronary artery without angina pectoris (8) HLD (hyperlipidemia) Code(s): E78.5 - HYPERLIPIDEMIA, UNSPECIFIED Qualifiers: Hyperlipidemia type: pure hypercholesterolemia Qualified Code(s): E78.00 - Pure hypercholesterolemia, unspecified; E78.0 - Pure hypercholesterolemia (9) HTN (hypertension) Code(s): I10 - ESSENTIAL (PRIMARY) HYPERTENSION Qualifiers: Hypertension type: essential hypertension Qualified Code(s): I10 - Essential (primary) hypertension (10) ICD (implantable cardioverter-defibrillator) in place Code(s): Z95.810 - PRESENCE OF AUTOMATIC (IMPLANTABLE) CARDIAC DEFIBRILLATOR (11) Renal insufficiency Code(s): N28.9 - DISORDER OF KIDNEY AND URETER, UNSPECIFIED Assessment/Plan Echocardiography performed April 28, 2019 revealed mild concentric left ventricular hypertrophy with severe reduction in left ventricular systolic function, estimated LVEF between 25-30%, mild left atrial dilatation, poorly visualized right ventricle, aortic valve leaflet sclerosis without leaflet restriction, mild mitral valve regurgitation, mild tricuspid valve regurgitation with calculated RVSP of 14 mmHg. Echocardiography performed March 10, 2018 revealed moderate left ventricular cavity dilatation with severe reduction in left ventricular systolic function estimated LVEF between 20-25%, mild left atrial dilatation, poorly visualize right ventricle, no aortic valve stenosis, mild to moderate mitral valve regurgitation, trace tricuspid valve regurgitation, trace pericardial effusion. 1. Chest pain and dyspnea referable to acute on chronic LV diastolic/systolic heart failure 2. Ischemic dilated cardiomyopathy LVEF 25-30% 3.Coronary artery disease status post remote myocardial infarction at age 18 post percutaneous coronary intervention/report of procedure not available angina pectoris, clinically stable. 4. Paroxysmal ventricular tachycardia post USER EXPERIENCE MANAGER-D/[employer]'s MRI conditional device (Amplia MRI- [id number]/SureScan) with recent appropriate ICD discharge 5. Paroxysmal atrial fibrillation currently off of anticoagulation therapy related to hemoptysis, [id number] score of 4- Watchman device/left atrial appendage closure device implantation recommended but has not been performed as of yet- patient reluctance to proceed with the above-noted procedure. 6.History of paroxysmal supraventricular tachycardia, cannot exclude paroxysmal atypical atrial flutter. 7.Hypertensive cardiovascular disease, labile blood pressurenot at goal- elevated diastolic blood pressure measurement. 8. Hypercholesterolemia. 9. History of seizure disorder. 10. History of chronic bronchitis. 11. History of gastroesophageal reflux disease with Lundy's esophagus. 12. History of chronic kidney disease post renal transplantation. Plan: 1. IV diuresis with monitor diuretic response, renal function and electrolytes, trend troponins, f/u COVID 2. Agree with IV amiodarone load to eventual oral load. Referral to EP for VT ablation as outpatient 3. Increase Toprol XL 100 bid, resume Entresto / bid, Norvasc 10 qd with uptitration as hemodynamics tolerate, advise change chlorthalidone 25 qd to Aldactone 25 qd with renal input once hyperkalemia resolved 4. Keep K>4.5 Mg>2.5, tacrolimus per renal transplant, replete Mg 5. Patient was strongly counseled dietary compliance including salt restriction/caloric restrictionandincrease ambulation as tolerated. 6. USER EXPERIENCE MANAGER-D interrogation and remoteCRT-D monitoring via [employer] serviceas scheduled. 7.Eventual f/u with Dr. Vasquez as outpatient 8. Thank you for consultative opportunity.
[2019-10-28] MEDS ORDERED: ONDANSETRON 4 MG/2 ML VIAL IVPB ONE (08:19)
[2019-10-28] MEDS ORDERED: ONDANSETRON 4 MG/2 ML VIAL IVPUSH ONE (08:21)
[2019-10-28] MEDS ORDERED: ACETAMINOPHEN 325 MG TABLET (FP) ONE (09:09)
[2019-10-28] MEDS ORDERED: METOPROLOL TARTRATE 25 MG TABLET (FP) ONE (09:10)
[2019-10-28] MEDS ORDERED: ASPIRIN 81 MG CHEWABLE TABLETS ONE (09:10)
[2019-10-28] MEDS ORDERED: PREGABALIN 100 MG CAPSULE ONE (09:10)
[2019-10-28] MEDS ORDERED: ACETAMINOPHEN 500 MG TABLET (FP) PO ONE (09:15)
--- NOTE | 2019-10-28 09:24 | CON.CARD ---
Consult Consult Specialty:: Cardiology Referred by:: Hospitalist Medicine Reason for Consultation:: Ischemic cardiomyopathy - History of Present Illness Chief Complaint: Dyspnea, ICD shock History of Present Illness: 54-year-old female with known history of coronary artery disease status post myocardial infarction at age 18 status post percutaneous coronary intervention/report of procedure not available angina pectoris, systolic left ventricular dysfunction related to ischemic dilated cardiomyopathy with chronic class I-II [place] Heart Association classification left ventricular failure (LVEF between 20-25% on echocardiography performedApril 28, 2019), sustained ventricular tachycardia post CHECK PILOT-D/[employer] MRI conditional device (Amplia MRI- [id number]/SureScan), paroxysmal atrial fibrillation currently off of anticoagulation therapy related to hemoptysis [id number] score of 4 (Hemoptysis noted on Eliquis therapy)-(left atrial appendage closure device implantation/Watchman device implantation was recommended as an alternative but patient thus far has declined), paroxysmal supraventricular tachycardia cannot exclude paroxysmal atypical atrial flutter, mitral valve regurgitation mild to moderate in severity on echocardiography performed March 10, 2018/mild in severity on echocardiography performed April 28, 2019, tricuspid valve regurgitation trace in severity with no evidence of pulmonary hypertension on echocardiography performed March 10, 2018/April 28, 2019-RVSP of 14 mm Hg, hypertensive cardiovascular disease/labile blood pressure, hypercholesterolemia, trace pericardial effusion on echocardiography performed March 10, 2018, seizure disorder, chronic bronchitis, gastroesophageal reflux disease with Lundy's esophagus and chronic kidney disease post renal transplantation who last was [id number]/12/2020 after appropriate ICD discharge c/w paroxysmal ventricular tachycardia presented for right-sided chest pain, SOB and orthopnea, has not been compliant with remote monitoring. Started IV amio load and IV diuresis. 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), Renal Inusuff - Past Surgical History Past Surgical History: Yes: Hysterectomy, Kidney Transplant (times two 1997, 2004), Permanent Pacemaker (defibrillator) - Alcohol/Substance Use Hx Alcohol Use: No History of Substance Use: reports: None - Smoking History Smoking history: Never smoked Have you smoked in the past 12 months: No Aproximately how many cigarettes per day: 0 - Social History Usual Living Arrangement: With Parent ADL: Family Assistance Occupation: unemployed History of Recent Travel: No Home Medications - Allergies Allergies/Adverse Reactions: Allergies Allergy/AdvReac Type Severity Reaction Status Date / Time metoclopramide HCl Allergy Severe Verified 07/27/17 14:07 [From Reglan] morphine AdvReac Severe Rash Verified 07/27/17 14:07 prochlorperazine edisylate AdvReac Severe Nausea Verified 07/27/17 14:07 [From Compazine] ciprofloxacin [From Cipro] AdvReac Intermediate Nausea Verified 07/27/17 14:07 erythromycin base AdvReac Intermediate Nausea Verified 07/27/17 14:07 [Erythromycin Base] - Home Medications Home Medications: Ambulatory Orders Pregabalin [Lyrica] 100 mg PO BID 05/13/16 Tacrolimus [Prograf] 1 mg PO BID 05/13/16 Amlodipine Besylate 10/27/19 Esomeprazole Magnesium [Nexium 24Hr] 40 mg PO DAILY 10/27/19 Metoprolol Tartrate 75 mg PO BID 10/27/19 Tacrolimus Anhydrous [Prograf] 1.5 mg PO DAILY 10/28/19 Review of Systems - Review of Systems Cardiovascular: reports: Chest Pain, Shortness of Breath Respiratory: reports: Exercise Intolerance, Orthopnea, SOB, SOB on Exertion Vital Signs: Vital Signs Temperature 97.2 F L 10/28/19 06:16 Pulse Rate 60 10/28/19 08:00 Respiratory Rate 22 H 10/28/19 08:00 Blood Pressure 152/104 H 10/28/19 08:00 O2 Sat by Pulse Oximetry (%) 94 L 10/28/19 08:00 Constitutional: Yes: No Distress, Anxious Neck: Yes: Supple Respiratory: Yes: Diminished, On Nasal O2, SOB Gastrointestinal: Yes: Soft, Hypoactive Bowel Sounds Cardiovascular: Yes: Regular Rate and Rhythm JVD: No Carotid Bruit: No Heart Sounds: Yes: S1, S2 Edema: No - Other Data Labs, Other Data: CBC, BMP 10/27/19 21:15 08/14/20 03:36 INR, PTT INR 0.87 (0.83-1.09) 10/27/19 21:15 Troponin, BNP 10/27/19 10/27/19 10/28/19 21:15 21:15 03:36 Troponin I < 0.02 < 0.02 B-Natriuretic Peptide 1626.2 H Troponin, BNP 10/27/19 10/27/19 10/28/19 21:15 21:15 03:36 Troponin I < 0.02 < 0.02 B-Natriuretic Peptide 1626.2 H AV paced Echo: Report Reviewed Prior Cardiac Procedures: PTCA with Stent Ejection Fraction %: LVEF < 40 % Imaging - Results Chest X-ray: Report Reviewed (NAD) Problem List - Problems (1) Chest pain Code(s): R07.9 - CHEST PAIN, UNSPECIFIED Qualifiers: Chest pain type: precordial pain Qualified Code(s): R07.2 - Precordial pain (2) Dyspnea Code(s): R06.00 - DYSPNEA, UNSPECIFIED Qualifiers: Dyspnea type: shortness of breath Qualified Code(s): R06.02 - Shortness of breath; R06.00 - Dyspnea, unspecified; R06.01 - Orthopnea (3) Heart failure Code(s): I50.9 - HEART FAILURE, UNSPECIFIED Qualifiers: Heart failure type: combined systolic and diastolic Heart failure chronicity: acute on chronic Qualified Code(s): I50.43 - Acute on chronic combined systolic (congestive) and diastolic (congestive) heart failure (4) Ventricular dysrhythmia Code(s): I49.9 - CARDIAC ARRHYTHMIA, UNSPECIFIED (5) Ischemic cardiomyopathy Code(s): I25.5 - ISCHEMIC CARDIOMYOPATHY (6) Renal transplant recipient Code(s): Z94.0 - KIDNEY TRANSPLANT STATUS (7) CAD (coronary artery disease) Code(s): I25.10 - ATHSCL HEART DISEASE OF [place] CORONARY ARTERY W/O ANG PCTRS Qualifiers: Coronary Disease-Associated Artery/Lesion type: [place] artery [place] vs. transplanted heart: [place] heart Associated angina: without angina Qualified Code(s): I25.10 - Atherosclerotic heart disease of [place] coronary artery without angina pectoris (8) HLD (hyperlipidemia) Code(s): E78.5 - HYPERLIPIDEMIA, UNSPECIFIED Qualifiers: Hyperlipidemia type: pure hypercholesterolemia Qualified Code(s): E78.00 - Pure hypercholesterolemia, unspecified; E78.0 - Pure hypercholesterolemia (9) HTN (hypertension) Code(s): I10 - ESSENTIAL (PRIMARY) HYPERTENSION Qualifiers: Hypertension type: essential hypertension Qualified Code(s): I10 - Essential (primary) hypertension (10) ICD (implantable cardioverter-defibrillator) in place Code(s): Z95.810 - PRESENCE OF AUTOMATIC (IMPLANTABLE) CARDIAC DEFIBRILLATOR (11) Renal insufficiency Code(s): N28.9 - DISORDER OF KIDNEY AND URETER, UNSPECIFIED Assessment/Plan Echocardiography performed April 28, 2019 revealed mild concentric left ventricular hypertrophy with severe reduction in left ventricular systolic function, estimated LVEF between 25-30%, mild left atrial dilatation, poorly visualized right ventricle, aortic valve leaflet sclerosis without leaflet restriction, mild mitral valve regurgitation, mild tricuspid valve regurgitation with calculated RVSP of 14 mmHg. Echocardiography performed March 10, 2018 revealed moderate left ventricular cavity dilatation with severe reduction in left ventricular systolic function estimated LVEF between 20-25%, mild left atrial dilatation, poorly visualize right ventricle, no aortic valve stenosis, mild to moderate mitral valve regurgitation, trace tricuspid valve regurgitation, trace pericardial effusion. 1. Chest pain and dyspnea referable to acute on chronic diastolic/systolic heart failure 2. Ischemic dilated cardiomyopathy LVEF 35-30% 3.Coronary artery disease status post remote myocardial infarction at age [address] percutaneous coronary intervention/report of procedure not available angina pectoris, clinically stable. 4. Paroxysmal ventricular tachycardia post CHECK PILOT-D/[employer]'s MRI conditional device (Amplia MRI- [id number]/SureScan) with recent appropriate discharge 5. Paroxysmal atrial fibrillation currently off of anticoagulation therapy related to hemoptysis, [id number] score of 4- Watchman device/left atrial appendage closure device implantation recommended but has not been performed as of yet- patient reluctance to proceed with the above-noted procedure. 6.History of paroxysmal supraventricular tachycardia, cannot exclude paroxysmal atypical atrial flutter. 7.Hypertensive cardiovascular disease, labile blood pressurenot at goal- elevated diastolic blood pressure measurement. 8. Hypercholesterolemia. 9. History of seizure disorder. 10. History of chronic bronchitis. 11. History of gastroesophageal reflux disease with Lundy's esophagus. 12. Chronic kidney disease post renal transplantation. Plan: 1. IV diuresis with monitor diuretic response, renal function and electrolytes, ruled out IL, check COVID status, FIO2 as needed 2. IV amiodarone load to eventual oral load, EP referral as outpatient for VT ablation 3. Increase Toprol XL 100 bid, [id number]/26 bid and Norvasc 10 qd with uptitration as hemodynamics tolerate, change chlorthalidone 25 qd to Aldactone 25 qd with renal input once hyperkalemia resolves 4. Keep K.4.5 Mg>2.5 so replete Mg, tacrolimus per renal transplant 5. Patient was strongly counseled dietary compliance including salt restriction/caloric restrictionandincrease ambulation as tolerated, NSAID avoidance 6. CHECK PILOT-D interrogation and remoteCRT-D monitoring via [employer] serviceas scheduled. 7. F/u with Dr. Vasquez post discharge 8. Thank you for consultative opportunity
[2019-10-28] MEDS: PREGABALIN 100 MG CAPSULE PO SCH ×2 (09:31→21:53)
[2019-10-28] MEDS: ASPIRIN 81 MG CHEWABLE TABLETS PO SCH (09:31)
[2019-10-28] MEDS: TACROLIMUS 0.5 MG CAPSULE PO SCH (09:44)
[2019-10-28] MEDS ORDERED: PATIENT'S OWN MEDICATION (NON-FORMULARY) (Esomeprazole Magnesium [Nexium 24hr] 40 MG) PO SCH (10:00)
[2019-10-28] MEDS ORDERED: PATIENT'S OWN MEDICATION (NON-FORMULARY) (Metoprolol Tartrate [Metoprolol Tartrate] 75 MG) PO SCH (10:00)
[2019-10-28] MEDS ORDERED: METOPROLOL TARTRATE 50 MG, METOPROLOL TARTRATE 25 MG PO SCH (10:00)
--- NOTE | 2019-10-28 11:57 | PN ---
Teaching Attending Note Name of Resident: Poncho Hemphill ATTENDING PHYSICIAN STATEMENT I saw and evaluated the patient. I reviewed the resident's note and discussed the case with the resident. I agree with the resident's findings and plan as documented. SUBJECTIVE: Still has ongoing central chest discomfort, without radiation, diaphoresis. Associated nausea, no vomiting. No fever/chills. OBJECTIVE: Afebrile, Hemodynamically stable. Last Vital Signs Temp Pulse Resp BP Pulse Ox 97.2 F L 62 16 129/74 97 10/28/19 06:16 10/28/19 10:00 10/28/19 10:00 10/28/19 10:00 10/28/19 10:00 HEENT - Atraumatic, normocephalic Heart - S1, S2, Irregular Lungs - clear to auscultation Abdomen - Soft, mild epigastric tenderness, multiple scars from abdominal surgeries. Bowel Sounds normal. Extremities - no calf tenderness, trace edema. L forearm AV fistula. Neuro - AAO x 3. Tone/Power normal al l4 extremities. Laboratory Results - last 24 hr 10/27/19 10/27/19 10/27/19 21:15 21:15 21:15 WBC 4.5 RBC 4.57 Hgb 13.4 Hct 40.7 D MCV 89.1 MCH 29.4 D MCHC 33.0 RDW 14.7 D Plt Count 134 MPV 11.2 H Absolute Neuts (auto) 2.6 Neutrophils % 57.7 Lymphocytes % 27.0 D Monocytes % 8.6 Eosinophils % 5.4 H Basophils % 1.3 Nucleated RBC % 0 PT with INR 10.30 INR 0.87 PTT (Actin FS) 34.8 VBG pH POC VBG pCO2 POC VBG pO2 VBG HCO3 VBG O2 Sat ([place]) VBG Base Excess Sodium 142 Potassium 5.3 H Chloride 109 H Carbon Dioxide 27 Anion Gap 5 L BUN 26.5 H Creatinine 1.3 Est GFR (CKD-EPI)AfAm 53.48 Est GFR (CKD-EPI)NonAf 46.15 Random Glucose 121 H Calcium 9.5 Phosphorus Magnesium 1.9 Total Bilirubin 0.3 AST 20 ALT 17 Alkaline Phosphatase 98 Creatine Kinase 49 Troponin I < 0.02 B-Natriuretic Peptide Total Protein 7.3 Albumin 4.0 TSH 2.73 Urine Color Urine Appearance Urine pH Ur Specific [place] Urine Protein Urine Glucose (UA) Urine Ketones Urine Blood Urine Nitrite Urine Bilirubin Urine Urobilinogen Ur Leukocyte Esterase Blood Type Antibody Screen 10/27/19 10/27/19 10/27/19 21:15 21:15 21:15 WBC RBC Hgb Hct MCV MCH MCHC RDW Plt Count MPV Absolute Neuts (auto) Neutrophils % Lymphocytes % Monocytes % Eosinophils % Basophils % Nucleated RBC % PT with INR INR PTT (Actin FS) VBG pH 7.390 POC VBG pCO2 38.9 POC VBG pO2 73.6 H VBG HCO3 23.0 VBG O2 Sat ([place]) 94.7 H VBG Base Excess -1.6 Sodium Potassium Chloride Carbon Dioxide Anion Gap BUN Creatinine Est GFR (CKD-EPI)AfAm Est GFR (CKD-EPI)NonAf Random Glucose Calcium Phosphorus Magnesium Total Bilirubin AST ALT Alkaline Phosphatase Creatine Kinase Troponin I B-Natriuretic Peptide 1626.2 H Total Protein Albumin TSH Urine Color Urine Appearance Urine pH Ur Specific [place] Urine Protein Urine Glucose (UA) Urine Ketones Urine Blood Urine Nitrite Urine Bilirubin Urine Urobilinogen Ur Leukocyte Esterase Blood Type O POSITIVE Antibody Screen Negative 10/28/19 10/28/19 00:37 03:36 WBC RBC Hgb Hct MCV MCH MCHC RDW Plt Count MPV Absolute Neuts (auto) Neutrophils % Lymphocytes % Monocytes % Eosinophils % Basophils % Nucleated RBC % PT with INR INR PTT (Actin FS) VBG pH POC VBG pCO2 POC VBG pO2 VBG HCO3 VBG O2 Sat ([place]) VBG Base Excess Sodium 140 Potassium 4.9 Chloride 106 Carbon Dioxide 27 Anion Gap 8 BUN 25.6 H Creatinine 1.4 H Est GFR (CKD-EPI)AfAm 48.90 Est GFR (CKD-EPI)NonAf 42.19 Random Glucose 171 H Calcium 9.6 Phosphorus 4.7 Magnesium 1.8 Total Bilirubin 0.4 AST 26 ALT 16 Alkaline Phosphatase 85 Creatine Kinase Troponin I < 0.02 B-Natriuretic Peptide Total Protein 7.2 Albumin 4.0 TSH Urine Color Yellow Urine Appearance Clear Urine pH 5.0 Ur Specific [place] 1.007 L Urine Protein Negative Urine Glucose (UA) Negative Urine Ketones Negative Urine Blood Negative Urine Nitrite Negative Urine Bilirubin Negative Urine Urobilinogen 0.2 Ur Leukocyte Esterase Negative Blood Type Antibody Screen Current Medications Generic Name Dose Route Start Last Admin Trade Name Freq PRN Reason Stop Dose Admin Aspirin 81 mg 10/28/19 10:00 10/28/19 09:31 Asa - PO 81 mg DAILY MARK ANTHONY Administration Chlorhexidine Gluconate 1 applic 10/28/19 22:00 Hibiclens For Decolonization - TP HS MARK ANTHONY Furosemide 40 mg 10/28/19 06:00 10/28/19 06:31 Lasix Injection - IVPUSH 40 mg BIDLASIX MARK ANTHONY Administration Amiodarone HCl/Dextrose 360 mg in 200 mls @ 16.667 mls/hr 10/28/19 06:15 10/28/19 06:40 Nexterone 360 Mg/200 Ml Bag IVPB 10/29/19 00:14 16.667 mls/hr ASDIR MARK ANTHONY Administration 0.5 MG/MIN Metoprolol Succinate 100 mg 10/28/19 10:00 10/28/19 11:22 Toprol Xl - PO Not Given BID MARK ANTHONY Mupirocin 1 applic 10/28/19 22:00 Bactroban Ointment (For Decolonization) - NS 11/02/19 21:59 BID MARK ANTHONY Pantoprazole Sodium 40 mg 10/28/19 07:00 10/28/19 07:16 Protonix - PO Not Given ACBK MARK ANTHONY Pregabalin 100 mg 10/28/19 10:00 10/28/19 09:31 Lyrica - PO 100 mg BID MARK ANTHONY Administration Tacrolimus 1 mg 10/28/19 22:00 Prograf PO HS MARK ANTHONY Tacrolimus 1.5 mg 10/28/19 10:00 10/28/19 09:44 Prograf PO 1.5 mg DAILY MARK ANTHONY Administration ASSESSMENT AND PLAN: 54 year old female with history of ESRD (previously on HD via LUE AVF, s/p kidney transplants 1997/2004, CAD s/p [place] at age 18 s/p PCI, Chronic Systolic CHF, s/p PPM/AICD, prolonged hospitalization for pulmonary hemorrhage due to Eliquis (long stay in ICU at [facility]; tracheostomy reversed), Atrial Fibri llation, Asthma, IBS, s/p resection of Sigmoid adenoma (age 18), Neuropathy, Lundy's esophagus and Thyromegaly presents with right-sided and substernal chest pain with some SOB. She recently saw Cardiology as out-patient 10/25 as her AICD fired due to paroxysmal ventricular tachycardia. 1. Atypical Chest discomfort ?sec to Acute decompensation of Systolic CHF/Dilated Cardiomyopathy (as per Cardio) EF 20-25% 2/20 Elevated BNP, Cardiomegaly and increased interstitial markings on CXR TropI neg x 2. ECG - Atrial fibrillation, no acute changes. Evaluated by Cardiology - recommend IV lasix diuresis for now. Echo requested. Cardiology recommends EP study and eval for VT ablation. Daily weight, I/Os Continue Metoprolol (dose increased). Cardiology recommends resuming Entresto and to transition from Chlorthalidone to Spironolactone - however, patient is not on either of these medications at home - will hold off for now due to borderline BP. For discussion with Cardio regarding further medication titration/optimization. 2. Paroxysmal Atrial fibrillation with paroxysmal ventricular tachycardia Required AICD shock 10/25 Cardiology recommends EP evaluation Currently being loaded with Amiodarone. Metoprolol dose increased Off AC due to Pulmonary hemorrhage - Watchman device/left atrial appendage closure recommended by Cardiology. 3. ESRD s/p Renal transplant x 2. Creatinine appears to be at baseine Continue Tacrolimus. 4. GERD ?Gastritis causing retrosternal discomfort PPI 5. HTN - Continue Metoprolol (dose increased). ?on Norvasc at home - medications need reconciliation. 6. Neuropathy - continue Lyrica. DVT Px - SCDs.
[2019-10-28 14:02] LABS: CHOLESTEROL 252 mg/dL (50-200); HDL CHOLESTEROL 40 mg/dL (40-60); LDL CHOLESTEROL (ONLY SJRH) 195 mg/dL (5-100); LIPASE 104 U/L (73-393); TRIGLYCERIDES 136 mg/dL (0-150)
--- NOTE | 2019-10-28 15:43 | EKG ---
Test Reason : Blood Pressure : / mmHG Vent. Rate : 060 BPM Atrial Rate : 060 BPM P-R Int : 138 ms QRS Dur : 142 ms QT Int : 518 ms P-R-T Axes : 092 -23 110 degrees QTc Int : 518 ms POOR DATA QUALITY, INTERPRETATION MAY BE ADVERSELY AFFECTED Atrial-sensed ventricular-paced rhythm ABNORMAL ECG WHEN COMPARED WITH ECG OF 27-OCT-2019 20:56, VENT. RATE HAS DECREASED BY 9 BPM Confirmed by GIL MALDONADO MD ([id number]) on 10/28/2019 3:42:59 PM Referred By: Confirmed By:GIL MALDONADO MD
--- NOTE | 2019-10-28 15:46 | EKG ---
Test Reason : Blood Pressure : / mmHG Vent. Rate : 069 BPM Atrial Rate : 069 BPM P-R Int : 168 ms QRS Dur : 126 ms QT Int : 436 ms P-R-T Axes : 023 008 113 degrees QTc Int : 467 ms Atrial-sensed ventricular-paced rhythm ABNORMAL ECG WHEN COMPARED WITH ECG OF 27-JUL-2017 13:55, VENT. RATE HAS DECREASED BY 3 BPM Confirmed by GIL MALDONADO MD ([id number]) on 10/28/2019 3:46:02 PM Referred By: Confirmed By:GIL MALDONADO MD
--- NOTE | 2019-10-28 16:02 | CONSULT ---
Consult Consult Specialty:: Nephrology Reason for Consultation:: kidney transplant - History of Present Illness Chief Complaint: chest pain History of Present Illness: Pt is a 54 year old female with pmhx of kidney transplant in 1997 and 2004, cad, ckd, cataracts, aicd, neuropathy, a-fib, asthma, and barretts esophagus who presents to the ER with chest pain. SHe also complains of shortness of breath. She did get shocked by her aicd for vtach. I was called to evaluate her as she has a kidney transplant. SHe denies dysuria or hematuria. She denies fevers or chills. She is on tacrolimus 1.5 mg in am and 1 mg in pm. She follows in [place] with Dr Bridges. 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), Renal Inusuff - Past Surgical History Past Surgical History: Yes: Hysterectomy, Kidney Transplant (times two 1997, 2004), Permanent Pacemaker (defibrillator) - Alcohol/Substance Use Hx Alcohol Use: No History of Substance Use: reports: None - Smoking History Smoking history: Never smoked Have you smoked in the past 12 months: No Aproximately how many cigarettes per day: 0 - Social History Usual Living Arrangement: With Parent ADL: Family Assistance Occupation: unemployed History of Recent Travel: No Home Medications - Allergies Allergies/Adverse Reactions: Allergies Allergy/AdvReac Type Severity Reaction Status Date / Time metoclopramide HCl Allergy Severe Verified 07/27/17 14:07 [From Reglan] morphine AdvReac Severe Rash Verified 07/27/17 14:07 prochlorperazine edisylate AdvReac Severe Nausea Verified 07/27/17 14:07 [From Compazine] ciprofloxacin [From Cipro] AdvReac Intermediate Nausea Verified 07/27/17 14:07 erythromycin base AdvReac Intermediate Nausea Verified 07/27/17 14:07 [Erythromycin Base] - Home Medications Home Medications: Ambulatory Orders Pregabalin [Lyrica] 100 mg PO BID 05/13/16 Tacrolimus [Prograf] 1 mg PO BID 05/13/16 Amlodipine Besylate 10 mg PO DAILY 10/27/19 Esomeprazole Magnesium [Nexium 24Hr] 40 mg PO BID 10/27/19 Metoprolol Succinate 75 mg PO BID 10/28/19 Tacrolimus Anhydrous [Prograf] 0.5 mg PO HS 10/28/19 Family Medical History Family History: Denies Review of Systems - Review of Systems Constitutional: reports: No Symptoms Eyes: reports: No Symptoms HENT: reports: No Symptoms Neck: reports: No Symptoms Cardiovascular: reports: Chest Pain Respiratory: reports: SOB, SOB on Exertion Gastrointestinal: reports: No Symptoms Genitourinary: reports: No Symptoms Musculoskeletal: reports: No Symptoms Integumentary: reports: No Symptoms Neurological: reports: No Symptoms Endocrine: reports: No Symptoms Hematology/Lymphatic: reports: No Symptoms Psychiatric: reports: No Symptoms Physical Exam Vital Signs: Vital Signs Temperature 97.2 F L 10/28/19 06:16 Pulse Rate 62 10/28/19 15:50 Respiratory Rate 14 10/28/19 15:50 Blood Pressure 145/90 10/28/19 15:50 O2 Sat by Pulse Oximetry (%) 99 10/28/19 15:50 Constitutional: Yes: Calm Eyes: Yes: Conjunctiva Clear HENT: Yes: Atraumatic Neck: Yes: Supple Cardiovascular: Yes: S1, S2 Respiratory: Yes: CTA Bilaterally Gastrointestinal: Yes: Soft Renal/: Yes: Other (graft non tender) Musculoskeletal: Yes: WNL Edema: LLE: Trace, RLE: Trace Neurological: Yes: Oriented Psychiatric: Yes: Oriented Labs: CBC, BMP 10/27/19 21:15 10/28/19 03:36 Imaging - Results Chest X-ray: Report Reviewed Problem List - Problems (1) Kidney transplant recipient Code(s): Z94.0 - KIDNEY TRANSPLANT STATUS (2) Chest pain Code(s): R07.9 - CHEST PAIN, UNSPECIFIED Qualifiers: Chest pain type: precordial pain Qualified Code(s): R07.2 - Precordial pain (3) Renal insufficiency Code(s): N28.9 - DISORDER OF KIDNEY AND URETER, UNSPECIFIED Assessment/Plan Current Medications Generic Name Dose Route Start Last Admin Trade Name Freq PRN Reason Stop Dose Admin Aspirin 81 mg 10/28/19 10:00 10/28/19 09:31 Asa - PO 81 mg DAILY MARK ANTHONY Administration Chlorhexidine Gluconate 1 applic 10/28/19 22:00 Hibiclens For Decolonization - TP HS MARK ANTHONY Furosemide 40 mg 10/28/19 06:00 10/28/19 15:00 Lasix Injection - IVPUSH 40 mg BIDLASIX MARK ANTHONY Administration Amiodarone HCl/Dextrose 360 mg in 200 mls @ 16.667 mls/hr 10/28/19 06:15 10/28/19 06:40 Nexterone 360 Mg/200 Ml Bag IVPB 10/29/19 00:14 16.667 mls/hr ASDIR MARK ANTHONY Administration 0.5 MG/MIN Metoprolol Succinate 100 mg 10/28/19 10:00 10/28/19 11:22 Toprol Xl - PO Not Given BID MARK ANTHONY Mupirocin 1 applic 10/28/19 22:00 Bactroban Ointment (For Decolonization) - NS 11/02/19 21:59 BID MARK ANTHONY Pantoprazole Sodium 40 mg 10/28/19 07:00 10/28/19 07:16 Protonix - PO Not Given ACBK MARK ANTHONY Pregabalin 100 mg 10/28/19 10:00 10/28/19 09:31 Lyrica - PO 100 mg BID MARK ANTHONY Administration Tacrolimus 1 mg 10/28/19 22:00 Prograf PO HS MARK ANTHONY Tacrolimus 1.5 mg 10/28/19 10:00 10/28/19 09:44 Prograf PO 1.5 mg DAILY MARK ANTHONY Administration Impression 1. kidney transplant 2. chest pain 3. a-fib 4. cad 5. cataracts 6. aicd firing from v-tach 7. hyperkalemia 8. CKD Plan - potassium improved - monitor renal function - avoid nepnrotoxins - monitor lytes and volume status closely with lasix - cardio input appreciated
--- NOTE | 2019-10-28 17:22 | PN ---
Physical Exam: SUBJECTIVE: Patient seen and examined OBJECTIVE: Vital Signs Period Temp Pulse Resp BP Sys/Bass Pulse Ox Last 24 Hr 97.2 F-98.3 F 60-94 14-22 108-154/64-104 18-100 GENERAL: The patient is awake, alert, and fully oriented, in no acute distress. HEAD: Normal with no signs of trauma. EYES: PERRL, extraocular movements intact, sclera anicteric, conjunctiva clear. No ptosis. ENT: Ears normal, nares patent, oropharynx clear without exudates, moist mucous membranes. NECK: Trachea midline, full range of motion, supple. LUNGS: Breath sounds equal, clear to auscultation bilaterally, no wheezes, no crackles, no accessory muscle use. HEART: Regular rate and rhythm, S1, S2 without murmur, rub or gallop. ABDOMEN: Soft, nontender, nondistended, normoactive bowel sounds, no guarding, no rebound, no hepatosplenomegaly, no masses. EXTREMITIES: 2+ pulses, warm, well-perfused, no edema. NEUROLOGICAL: Cranial nerves II through XII grossly intact. Normal speech, gait not observed. PSYCH: Normal mood, normal affect. SKIN: Warm, dry, normal turgor, no rashes or lesions noted Laboratory Results - last 24 hr 10/27/19 10/27/19 10/27/19 21:15 21:15 21:15 WBC 4.5 RBC 4.57 Hgb 13.4 Hct 40.7 D MCV 89.1 MCH 29.4 D MCHC 33.0 RDW 14.7 D Plt Count 134 MPV 11.2 H Absolute Neuts (auto) 2.6 Neutrophils % 57.7 Lymphocytes % 27.0 D Monocytes % 8.6 Eosinophils % 5.4 H Basophils % 1.3 Nucleated RBC % 0 PT with INR 10.30 INR 0.87 PTT (Actin FS) 34.8 VBG pH POC VBG pCO2 POC VBG pO2 VBG HCO3 VBG O2 Sat ([place]) VBG Base Excess Sodium 142 Potassium 5.3 H Chloride 109 H Carbon Dioxide 27 Anion Gap 5 L BUN 26.5 H Creatinine 1.3 Est GFR (CKD-EPI)AfAm 53.48 Est GFR (CKD-EPI)NonAf 46.15 Random Glucose 121 H Calcium 9.5 Phosphorus Magnesium 1.9 Total Bilirubin 0.3 AST 20 ALT 17 Alkaline Phosphatase 98 Creatine Kinase 49 Troponin I < 0.02 B-Natriuretic Peptide Total Protein 7.3 Albumin 4.0 Triglycerides Cholesterol Total LDL Cholesterol HDL Cholesterol Lipase TSH 2.73 Urine Color Urine Appearance Urine pH Ur Specific [place] Urine Protein Urine Glucose (UA) Urine Ketones Urine Blood Urine Nitrite Urine Bilirubin Urine Urobilinogen Ur Leukocyte Esterase Blood Type Antibody Screen 10/27/19 10/27/19 10/27/19 21:15 21:15 21:15 WBC RBC Hgb Hct MCV MCH MCHC RDW Plt Count MPV Absolute Neuts (auto) Neutrophils % Lymphocytes % Monocytes % Eosinophils % Basophils % Nucleated RBC % PT with INR INR PTT (Actin FS) VBG pH 7.390 POC VBG pCO2 38.9 POC VBG pO2 73.6 H VBG HCO3 23.0 VBG O2 Sat ([place]) 94.7 H VBG Base Excess -1.6 Sodium Potassium Chloride Carbon Dioxide Anion Gap BUN Creatinine Est GFR (CKD-EPI)AfAm Est GFR (CKD-EPI)NonAf Random Glucose Calcium Phosphorus Magnesium Total Bilirubin AST ALT Alkaline Phosphatase Creatine Kinase Troponin I B-Natriuretic Peptide 1626.2 H Total Protein Albumin Triglycerides Cholesterol Total LDL Cholesterol HDL Cholesterol Lipase TSH Urine Color Urine Appearance Urine pH Ur Specific [place] Urine Protein Urine Glucose (UA) Urine Ketones Urine Blood Urine Nitrite Urine Bilirubin Urine Urobilinogen Ur Leukocyte Esterase Blood Type O POSITIVE Antibody Screen Negative 10/28/19 10/28/19 10/28/19 00:37 03:36 13:08 WBC RBC Hgb Hct MCV MCH MCHC RDW Plt Count MPV Absolute Neuts (auto) Neutrophils % Lymphocytes % Monocytes % Eosinophils % Basophils % Nucleated RBC % PT with INR INR PTT (Actin FS) VBG pH POC VBG pCO2 POC VBG pO2 VBG HCO3 VBG O2 Sat ([place]) VBG Base Excess Sodium 140 Potassium 4.9 Chloride 106 Carbon Dioxide 27 Anion Gap 8 BUN 25.6 H Creatinine 1.4 H Est GFR (CKD-EPI)AfAm 48.90 Est GFR (CKD-EPI)NonAf 42.19 Random Glucose 171 H Calcium 9.6 Phosphorus 4.7 Magnesium 1.8 Total Bilirubin 0.4 AST 26 ALT 16 Alkaline Phosphatase 85 Creatine Kinase Troponin I < 0.02 < 0.02 B-Natriuretic Peptide Total Protein 7.2 Albumin 4.0 Triglycerides 136 Cholesterol 252 H Total LDL Cholesterol 195 H HDL Cholesterol 40 Lipase 104 TSH Urine Color Yellow Urine Appearance Clear Urine pH 5.0 Ur Specific [place] 1.007 L Urine Protein Negative Urine Glucose (UA) Negative Urine Ketones Negative Urine Blood Negative Urine Nitrite Negative Urine Bilirubin Negative Urine Urobilinogen 0.2 Ur Leukocyte Esterase Negative Blood Type Antibody Screen 10/28/19 13:08 WBC RBC Hgb Hct MCV MCH MCHC RDW Plt Count MPV Absolute Neuts (auto) Neutrophils % Lymphocytes % Monocytes % Eosinophils % Basophils % Nucleated RBC % PT with INR INR PTT (Actin FS) VBG pH POC VBG pCO2 POC VBG pO2 VBG HCO3 VBG O2 Sat ([place]) VBG Base Excess Sodium Potassium Chloride Carbon Dioxide Anion Gap BUN Creatinine Est GFR (CKD-EPI)AfAm Est GFR (CKD-EPI)NonAf Random Glucose Calcium Phosphorus Magnesium Total Bilirubin AST ALT Alkaline Phosphatase Creatine Kinase Troponin I B-Natriuretic Peptide Total Protein Albumin Triglycerides Cholesterol Total LDL Cholesterol HDL Cholesterol Lipase Cancelled TSH Urine Color Urine Appearance Urine pH Ur Specific [place] Urine Protein Urine Glucose (UA) Urine Ketones Urine Blood Urine Nitrite Urine Bilirubin Urine Urobilinogen Ur Leukocyte Esterase Blood Type Antibody Screen Active Medications Generic Name Dose Route Start Last Admin Trade Name Avelinoq PRN Reason Stop Dose Admin Aspirin 81 mg 10/28/19 10:00 10/28/19 09:31 Asa - PO 81 mg DAILY MARK ANTHONY Administration Chlorhexidine Gluconate 1 applic 10/28/19 22:00 Hibiclens For Decolonization - TP HS MARK ANTHONY Furosemide 40 mg 10/28/19 06:00 10/28/19 15:00 Lasix Injection - IVPUSH 40 mg BIDLASIX MARK ANTHONY Administration Amiodarone HCl/Dextrose 360 mg in 200 mls @ 16.667 mls/hr 10/28/19 06:15 10/28/19 06:40 Nexterone 360 Mg/200 Ml Bag IVPB 10/29/19 00:14 16.667 mls/hr ASDIR MARK ANTHONY Administration 0.5 MG/MIN Metoprolol Succinate 100 mg 10/28/19 10:00 10/28/19 11:22 Toprol Xl - PO Not Given BID MARK ANTHONY Mupirocin 1 applic 10/28/19 22:00 Bactroban Ointment (For Decolonization) - NS 11/02/19 21:59 BID MARK ANTHONY Pantoprazole Sodium 40 mg 10/28/19 07:00 10/28/19 07:16 Protonix - PO Not Given ACBK MARK ANTHONY Pregabalin 100 mg 10/28/19 10:00 10/28/19 09:31 Lyrica - PO 100 mg BID MARK ANTHONY Administration Tacrolimus 1 mg 10/28/19 22:00 Prograf PO HS MARK ANTHONY Tacrolimus 1.5 mg 10/28/19 10:00 10/28/19 09:44 Prograf PO 1.5 mg DAILY MARK ANTHONY Administration ASSESSMENT/PLAN: ATTENDING PHYSICIAN STATEMENT I saw and evaluated the patient. I reviewed the resident's note and discussed the case with the resident. I agree with the resident's findings and plan as documented. SUBJECTIVE: OBJECTIVE: ASSESSMENT AND PLAN:
[2019-10-28] MEDS ORDERED: AMIODARONE HCL 200 MG TABLET PO ONE (19:49)
[2019-10-28] MEDS: TACROLIMUS ANHYDROUS 1 MG CAPSULE PO SCH (21:54)
[2019-10-28] MEDS ORDERED: MUPIROCIN 2% TOPICAL OINTMENT FOR DECOLONIZATION NS SCH (22:00)
[2019-10-28] MEDS ORDERED: CHLORHEXIDINE GLUCONATE 4% CLEANSER FOR DECOLONIZATION TP SCH (22:00)
[2019-10-28 23:48] VITALS: BMI 23.7
[2019-10-29] MEDS: FUROSEMIDE 40 MG/4 ML INJECTABLE VIAL IVPUSH SCH (06:20)
[2019-10-29] MEDS: PANTOPRAZOLE 40 MG TABLET PO SCH (06:21)
[2019-10-29] MEDS ORDERED: PT OWN MED DRAWER 7, Y5N ONE (09:43)
[2019-10-29] MEDS: ASPIRIN 81 MG CHEWABLE TABLETS PO SCH (09:57)
[2019-10-29] MEDS: TACROLIMUS 0.5 MG CAPSULE PO SCH (09:58)
[2019-10-29] MEDS: PREGABALIN 100 MG CAPSULE PO SCH ×2 (09:58→21:55)
--- NOTE | 2019-10-29 10:17 | PN ---
Progress Note, Physician Chief Complaint: Events noted Generalized weakness and complains of chest wall soreness History of Present Illness: Patient was seen and examined. Awake and alert. Chart was reviewed Denies chest pain, SOB or palpitations Amiodarone has been loaded intravenously - Current Medication List Current Medications: Active Medications Aspirin (Asa -) 81 mg PO DAILY [facility] Last Admin: 10/29/19 09:57 Dose: 81 mg Documented by: Furosemide (Lasix Injection -) 40 mg IVPUSH BIDLASIX [facility] Last Admin: 10/29/19 06:20 Dose: 40 mg Documented by: Metoprolol Succinate (Toprol Xl -) 100 mg PO BID [facility] Last Admin: 10/29/19 09:57 Dose: 100 mg Documented by: Pantoprazole Sodium (Protonix -) 40 mg PO ACBK [facility] Last Admin: 10/29/19 06:21 Dose: 40 mg Documented by: Pregabalin (Lyrica -) 100 mg PO BID [facility] Last Admin: 10/29/19 09:58 Dose: 100 mg Documented by: Tacrolimus (Prograf) 1 mg PO HS [facility] Last Admin: 10/28/19 21:54 Dose: 1 mg Documented by: Tacrolimus (Prograf) 1.5 mg PO DAILY [facility] Last Admin: 10/29/19 09:58 Dose: 1.5 mg Documented by: - Objective Vital Signs: Vital Signs Temperature 97.5 F L 10/29/19 09:47 Pulse Rate 60 10/29/19 09:47 Respiratory Rate 18 10/29/19 09:47 Blood Pressure 109/71 10/29/19 09:47 O2 Sat by Pulse Oximetry (%) 98 10/29/19 09:47 Eyes: Yes: PERRL HENT: Yes: Atraumatic Neck: Yes: Supple Cardiovascular: Yes: Regular Rate and Rhythm, S1, S2 Respiratory: Yes: CTA Bilaterally Gastrointestinal: Yes: Normal Bowel Sounds, Soft. No: Tenderness Edema: No Additional Findings/Remarks: - Review of Systems Constitutional: denies: Chills, Fever Cardiovascular: reports: Chest Pain, denies:Shortness of Breath. denies: Palpitations Respiratory: denies SOB. denies: Cough, Hemoptysis, Orthopnea, PND Gastrointestinal: denies: Abdominal Pain, Constipation, Diarrhea, Melena, Nausea, Rectal Bleeding, Vomiting Neurological: denies: Dizziness, Headache, Seizure, Syncope Labs: CBC, BMP 10/27/19 21:15 10/28/19 03:36 INR, PTT INR 0.87 (0.83-1.09) 10/27/19 21:15 Problem List - Problems (1) Ventricular dysrhythmia Code(s): I49.9 - CARDIAC ARRHYTHMIA, UNSPECIFIED (2) Ischemic cardiomyopathy Code(s): I25.5 - ISCHEMIC CARDIOMYOPATHY (3) CAD (coronary artery disease) Code(s): I25.10 - ATHSCL HEART DISEASE OF [place] CORONARY ARTERY W/O ANG PCTRS Qualifiers: Coronary Disease-Associated Artery/Lesion type: [place] artery [place] vs. transplanted heart: [place] heart Associated angina: without angina Qualified Code(s): I25.10 - Atherosclerotic heart disease of [place] coronary artery without angina pectoris (4) HLD (hyperlipidemia) Code(s): E78.5 - HYPERLIPIDEMIA, UNSPECIFIED Qualifiers: Hyperlipidemia type: pure hypercholesterolemia Qualified Code(s): E78.00 - Pure hypercholesterolemia, unspecified; E78.0 - Pure hypercholesterolemia (5) HTN (hypertension) Code(s): I10 - ESSENTIAL (PRIMARY) HYPERTENSION Qualifiers: Hypertension type: essential hypertension Qualified Code(s): I10 - Essential (primary) hypertension (6) ICD (implantable cardioverter-defibrillator) in place Code(s): Z95.810 - PRESENCE OF AUTOMATIC (IMPLANTABLE) CARDIAC DEFIBRILLATOR (7) Renal insufficiency Code(s): N28.9 - DISORDER OF KIDNEY AND URETER, UNSPECIFIED (8) Hyperkalemia Code(s): E87.5 - HYPERKALEMIA Assessment/Plan 1. Chest pain and dyspnea referable to acute on chronic diastolic/systolic heart failure 2. Ischemic dilated cardiomyopathy LVEF 35-30% 3.Coronary artery disease status post remote myocardial infarction at age 18 post percutaneous coronary intervention/report of procedure not available angina pectoris, clinically stable. 4. 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 Paroxysmal atrial fibrillation currently off of anticoagulation therapy related to hemoptysis, [id number] score of 4- Watchman device/left atrial appendage closure device implantation recommended but has not been performed as of yet- patient reluctance to proceed with the above-noted procedure. 6.History of paroxysmal supraventricular tachycardia, cannot exclude paroxysmal atypical atrial flutter. 7.Hypertensive cardiovascular disease, labile blood pressurenot at goal- elevated diastolic blood pressure measurement. 8. Hypercholesterolemia. 9. History of seizure disorder. 10. History of chronic bronchitis. 11. History of gastroesophageal reflux disease with Lundy's esophagus. 12. Chronic kidney disease post renal transplantation. PLAN: 1. IV diuresis was given but can be stopped and switched to PO Lasix 20 mg QD 2. IV amiodarone loading done and currently start Amidarone 400 mg PO BID today and then QD thereafter. EP referral as outpatient for VT ablation 3. Continue Toprol XL 100 mg BID and afbatsRfjsnsih50/26 mg BID (office note states patient was given this, but apparently she has not been taking it) +/- Norvasc previously on 10 mg QD with uptitration as hemodynamics tolerate and leon al function improves. Consider Aldactone 25 mg QD instead of Chlorthalidone (also listed on office medication list, but patient has not been on it) once hyperkalemia resolves. These can be clarified in the office with Dr. Vasquez. 4. Keep K.4.5 Mg>2.5 so replete Mg, tacrolimus per renal transplant 5. Patient was strongly counseled dietary compliance including salt restriction/caloric restrictionandincrease ambulation as tolerated, NSAID avoidance 6. ACADEMIC AFFAIRS VICE PRESIDENT-D interrogation and remoteCRT-D monitoring via [employer]'s [facility] serviceas scheduled. 7. F/u with Dr. Vasquez post discharge Further plans are to follow Roger Alicia MD
[2019-10-29] MEDS: AMIODARONE HCL 200 MG TABLET PO SCH ×2 (11:35→21:55)
[2019-10-29 12:20] LABS: HEMATOCRIT 44.2 % (32.4-45.2); HEMOGLOBIN 14.4 GM/dL (10.7-15.3); MCH 29.3 pg (25.7-33.7); MCHC 32.7 g/dl (32.0-36.0); MEAN CELL VOLUME 89.4 fl (80-96); PLATELET COUNT 174 K/MM3 (134-434); RBC 4.94 M/mm3 (3.60-5.2); RDW 14.7 % (11.6-15.6); WHITE BLOOD COUNT 5.9 K/mm3 (4.0-10.0)
[2019-10-29] MEDS ORDERED: MAGNESIUM SULF 50% (8.12 MEQ/2 ML-1 GM VIAL) IVPB ONE (12:29)
[2019-10-29] MEDS ORDERED: MAGNESIUM SULFATE IN WATER 2 GM/50 ML IVPB IVPB ONE (12:45)
[2019-10-29 12:50] LABS: ALBUMIN 4.2 g/dl (3.4-5.0); BILIRUBIN,TOTAL 0.6 mg/dL (0.2-1); BLOOD UREA NITROGEN 36.7 mg/dL (7-18); CALCIUM 9.1 mg/dL (8.5-10.1); CREATININE 2.3 mg/dL (0.55-1.3); POTASSIUM 5.3 mmol/L (3.5-5.1); TOT PROT 7.4 g/dl (6.4-8.2)
--- NOTE | 2019-10-29 12:54 | PN ---
Physical Exam: SUBJECTIVE: Patient seen and examined at bedside. No acute overnight events. Endorses minimal chest soreness improving. Denies subjective fevers, chills, shortness of breath, palpitations, abdominal pain, nausea, vomiting. OBJECTIVE: Vital Signs Period Temp Pulse Resp BP Sys/Bass Pulse Ox Last 24 Hr 97.5 F-98.1 F 60-62 14-20 108-149/56-90 18-100 GENERAL: The patient is awake, alert, and fully oriented, in no acute distress. HEAD: Normocephalic, atraumatic. EYES: PERRL, extraocular movements intact, sclera anicteric, conjunctiva clear. ENT: Oropharynx clear, without erythema or exudates. Moist mucous membranes. NECK: Trachea midline, full range of motion. Supple without lymphadenopathy. LUNGS: Breath sounds equal, clear to auscultation bilaterally. No wheezes, no crackles. No accessory muscle use. HEART: Irregular rate. S1, S2 without murmur, rub or gallop. ABDOMEN: Soft, nondistended, nontender to light and deep palpation x4 quadrants. No rebound tenderness, no guarding. Normoactive bowel sounds x4 quadrants. No hepatosplenomegaly, no masses appreciated. EXTREMITIES: 2+ radial, dorsalis pedis pulses bilaterally. Warm, well-perfused. Trace lower extremity edema bilaterally. Left arm AV fistula with palpable thrill. NEUROLOGICAL: Cranial nerves II through XII grossly intact. Normal speech. No gross focal deficits. PSYCH: Normal mood, normal affect upon my encounter. SKIN: Warm, dry. Numerous surgical scars well healed, dry. Laboratory Results - last 24 hr 10/27/19 10/28/19 10/28/19 21:30 13:08 13:08 WBC RBC Hgb Hct MCV MCH MCHC RDW Plt Count MPV Sodium Potassium Chloride Carbon Dioxide Anion Gap BUN Creatinine Est GFR (CKD-EPI)AfAm Est GFR (CKD-EPI)NonAf Random Glucose Calcium Total Bilirubin AST ALT Alkaline Phosphatase Troponin I < 0.02 Total Protein Albumin Triglycerides 136 Cholesterol 252 H Total LDL Cholesterol 195 H HDL Cholesterol 40 Lipase 104 Cancelled COVID-19 (MARY) Not detected 10/29/19 10/29/19 11:00 11:00 WBC 5.9 RBC 4.94 Hgb 14.4 Hct 44.2 MCV 89.4 MCH 29.3 MCHC 32.7 RDW 14.7 Plt Count 174 D MPV 12.0 H Sodium 140 Potassium 5.3 H Chloride 103 Carbon Dioxide 28 Anion Gap 10 BUN 36.7 H Creatinine 2.3 H Est GFR (CKD-EPI)AfAm 26.83 Est GFR (CKD-EPI)NonAf 23.15 Random Glucose 119 H Calcium 9.1 Total Bilirubin 0.6 AST 15 ALT 21 Alkaline Phosphatase 76 Troponin I Total Protein 7.4 Albumin 4.2 Triglycerides Cholesterol Total LDL Cholesterol HDL Cholesterol Lipase COVID-19 (MARY) Active Medications Generic Name Dose Route Start Last Admin Trade Name Freq PRN Reason Stop Dose Admin Amiodarone HCl 400 mg 10/29/19 10:30 10/29/19 11:35 Cordarone - PO 400 mg BID MARK ANTHONY Administration Aspirin 81 mg 10/28/19 10:00 10/29/19 09:57 Asa - PO 81 mg DAILY MARK ANTHONY Administration Furosemide 40 mg 10/28/19 06:00 10/29/19 06:20 Lasix Injection - IVPUSH 40 mg BIDLASIX MARK ANTHONY Administration Magnesium Sulfate 2 gm in 50 mls @ 50 mls/hr 10/29/19 12:45 Magnesium Sulf 2 G/50 Ml Bag IVPB 10/29/19 13:44 ONCE ONE Metoprolol Succinate 100 mg 10/28/19 10:00 10/29/19 09:57 Toprol Xl - PO 100 mg BID MARK ANTHONY Administration Pantoprazole Sodium 40 mg 10/28/19 07:00 10/29/19 06:21 Protonix - PO 40 mg ACBK MARK ANTHONY Administration Pregabalin 100 mg 10/28/19 10:00 10/29/19 09:58 Lyrica - PO 100 mg BID MARK ANTHONY Administration Tacrolimus 1 mg 10/28/19 22:00 10/28/19 21:54 Prograf PO 1 mg HS MARK ANTHONY Administration Tacrolimus 1.5 mg 10/28/19 10:00 10/29/19 09:58 Prograf PO 1.5 mg DAILY MARK ANTHONY Administration ASSESSMENT/PLAN: Patient is a 54 year old female with history of ESRD (previously on hemodialysis, s/p renal transplants 1997 and 2004), coronary artery disease (MD at age 18, s/p PCI), HFrEF (LVEF 20-25% in 04/2019), ventricular tachycardia s/p AICD, paroxysmal Afib (formerly on Eliquis, discontinued due to pulmonary hemorrhage), neuropathy, Barett's esophagus, presents with complaint of chest discomfort, shortness of breath. Atypical chest pain -Remains unclear etiology. Possibly secondary to acute heart failure exacerbation. Troponin negative X3 -Metoprolol succinate increased to 100mg PO BID -Patient has not recently been on Entresto, or Chlorthalidone. Currently holding in setting of SHANITA, and borderline blood pressures. -Holding Lasix in setting of SHANITA, and borderline blood pressures -Cardiology recommendations (Dr. Alicia) appreciated. -Cardiac telemetry monitoring Paroxysmal Afib, ventricualr tachycardia -Overnight telemetry without acute events -Amiodarone 400mg PO BID today, and begin Amiodarone 400mg PO daily tomorrow. -Metoprolol succinate increased to 100mg PO BID -Chemical anticoagulation held in setting of prior pulmonary hemorrhage. For outpatient evaluation of left atrial appendage closure device. -Patient will require outpatient EP follow up (patient not accepted for transfer to [place] while inpatient). Acute Kidney Injury, history of renal transplants -SHANITA Likely secondary to diuresis with Lasix. -Will gently hydrate with IV normal saline at 100mL/ hour. Expect hyperkalemia to resolve withincreased tubular flow, secondary to hydration. Follow BMP. -Continue Tacrolimus -Nephrology recommendations (Dr. Dasilva) appreciated. History of hypertension -Holding home Norvasc given borderline BP. -Continue Metoprolol succinate History of neuropathy -Continue Lyrica FEN -Gentle hydraton IV normal saline at 100mL/ hour. -Hyperkalemia. Follow BMP -Renal diet Prophylaxis -SCDs bilateral lower extremities. Chemical anticoagulation held in setting of prior pulmonry hemorrhage Disposition -Continue care on Telemetry floor. Visit type - Emergency Visit Emergency Visit: Yes ED Registration Date: 10/27/19 Care time: The patient presented to the Emergency Department on the above date and was hospitalized for further evaluation of their emergent condition. - New Patient This patient is new to me today: Yes Date on this admission: 10/30/19 - Critical Care Critical Care patient: No - Discharge Referral Referred to [facility] Med P.C.: No ATTENDING PHYSICIAN STATEMENT I saw and evaluated the patient. I reviewed the resident's note and discussed the case with the resident. I agree with the resident's findings and plan as documented. SUBJECTIVE: OBJECTIVE: ASSESSMENT AND PLAN:
--- NOTE | 2019-10-29 13:17 | PN ---
Teaching Attending Note Name of Resident: Rickey Barba ATTENDING PHYSICIAN STATEMENT I saw and evaluated the patient. I reviewed the resident's note and discussed the case with the resident. I agree with the resident's findings and plan as documented. SUBJECTIVE: Feels well - some intermittent chest disconfort. No further nausea/vomiting. No fever/chills. OBJECTIVE: Afebrile, Hemodynamically stable. Last Vital Signs Temp Pulse Resp BP Pulse Ox 97.5 F L 60 18 109/71 98 10/29/19 09:47 10/29/19 09:47 10/29/19 09:47 10/29/19 09:47 10/29/19 09:47 Heart - S1, S2, Irregular Lungs - clear to auscultation Abdomen - Soft, mild epigastric tenderness, multiple scars from abdominal surgeries. Bowel Sounds normal. Extremities - no calf tenderness, trace edema. L forearm AV fistula. Neuro - AAO x 3. Tone/Power normal al l4 extremities. Laboratory Results - last 24 hr 10/27/19 10/28/19 10/28/19 21:30 13:08 13:08 WBC RBC Hgb Hct MCV MCH MCHC RDW Plt Count MPV Sodium Potassium Chloride Carbon Dioxide Anion Gap BUN Creatinine Est GFR (CKD-EPI)AfAm Est GFR (CKD-EPI)NonAf Random Glucose Calcium Total Bilirubin AST ALT Alkaline Phosphatase Troponin I < 0.02 Total Protein Albumin Triglycerides 136 Cholesterol 252 H Total LDL Cholesterol 195 H HDL Cholesterol 40 Lipase 104 Cancelled COVID-19 (MARY) Not detected 10/29/19 10/29/19 11:00 11:00 WBC 5.9 RBC 4.94 Hgb 14.4 Hct 44.2 MCV 89.4 MCH 29.3 MCHC 32.7 RDW 14.7 Plt Count 174 D MPV 12.0 H Sodium 140 Potassium 5.3 H Chloride 103 Carbon Dioxide 28 Anion Gap 10 BUN 36.7 H Creatinine 2.3 H Est GFR (CKD-EPI)AfAm 26.83 Est GFR (CKD-EPI)NonAf 23.15 Random Glucose 119 H Calcium 9.1 Total Bilirubin 0.6 AST 15 ALT 21 Alkaline Phosphatase 76 Troponin I Total Protein 7.4 Albumin 4.2 Triglycerides Cholesterol Total LDL Cholesterol HDL Cholesterol Lipase COVID-19 (MARY) Current Medications Generic Name Dose Route Start Last Admin Trade Name Freq PRN Reason Stop Dose Admin Amiodarone HCl 400 mg 10/29/19 10:30 10/29/19 11:35 Cordarone - PO 400 mg BID MARK ANTHONY Administration Aspirin 81 mg 10/28/19 10:00 10/29/19 09:57 Asa - PO 81 mg DAILY MARK ANTHONY Administration Furosemide 40 mg 10/28/19 06:00 10/29/19 06:20 Lasix Injection - IVPUSH 40 mg BIDLASIX MARK ANTHONY Administration Magnesium Sulfate 2 gm in 50 mls @ 50 mls/hr 10/29/19 12:45 Magnesium Sulf 2 G/50 Ml Bag IVPB 10/29/19 13:44 ONCE ONE Metoprolol Succinate 100 mg 10/28/19 10:00 10/29/19 09:57 Toprol Xl - PO 100 mg BID MARK ANTHONY Administration Pantoprazole Sodium 40 mg 10/28/19 07:00 10/29/19 06:21 Protonix - PO 40 mg ACBK MARK ANTHONY Administration Pregabalin 100 mg 10/28/19 10:00 10/29/19 09:58 Lyrica - PO 100 mg BID MARK ANTHONY Administration Tacrolimus 1 mg 10/28/19 22:00 10/28/19 21:54 Prograf PO 1 mg HS MARK ANTHONY Administration Tacrolimus 1.5 mg 10/28/19 10:00 10/29/19 09:58 Prograf PO 1.5 mg DAILY MARK ANTHONY Administration Home Medications Medication Instructions Recorded Pregabalin [Lyrica] 100 mg PO BID 05/13/16 Tacrolimus [Prograf] 1 mg PO BID 05/13/16 Esomeprazole Magnesium [Nexium 40 mg PO BID 10/27/19 24Hr] Tacrolimus Anhydrous [Prograf] 0.5 mg PO HS 10/28/19 Amiodarone HCl [Cordarone -] 400 mg PO DAILY 30 Days #30 tablet 10/29/19 Metoprolol Succinate [Toprol XL -] 100 mg PO BID 30 Days #60 10/29/19 tab.sr.24h ASSESSMENT AND PLAN: 54 year old female with history of ESRD (previously on HD via LUE AVF, s/p kidney transplants 1997/2004, CAD s/p [place] at age 18 s/p PCI, Chronic Systolic CHF, s/p PPM/AICD, prolonged hospitalization for pulmonary hemorrhage due to Eliquis (long stay in ICU at [place]; tracheostomy reversed), Atrial Fibrillation, Asthma, IBS, s/p resection of Sigmoid adenoma (age 18), Neuropathy, Lundy's esophagus and Thyromegaly presents with right-sided and substernal chest pain with some SOB. She recently saw Cardiology as out-patient 10/25 as her AICD fired due to paroxysmal ventricular tachycardia. 1. Atypical Chest discomfort ?etiology Cardiology treated for Acute decompensation of Systolic CHF/Dilated Cardiomyopathy with IV Lasix EF 20-25% 2/20 Elevated BNP, Cardiomegaly and increased interstitial markings on CXR TropI neg x 2. ECG - Atrial fibrillation, no acute changes. Evaluated by Cardiology and started on IV Lasix, now stopped due to SHANITA. Daily weight, I/Os Continue Metoprolol (dose increased). Cardiology recommends resuming Entresto and to transition from Chlorthalidone to Spironolactone - however, patient is not on either of these medications at home - will hold off for now due to borderline BP/SHANITA/Hyperkalemia. For follow up with Dr. Vasquez as out-patient for further medication titration/optimization. 2. Paroxysmal Atrial fibrillation with paroxysmal ventricular tachycardia Required AICD shock 10/25 Cardiology recommends out-patient EP study and eval for VT ablation. Currently being loaded with Amiodarone - to continue Amiodarone 400mg daily. Metoprolol dose increased Off AC due to Pulmonary hemorrhage - Watchman device/left atrial appendage closure recommended by Cardiology. 3. SHANITA with Hyperkalemia - sec to Lasix diuresis Lasix held. Started on gentle hydration, discussed with Nephrology. 4. ESRD s/p Renal transplant x 2. SHANITA due to lasix diuresis - gentle hydration. Continue Tacrolimus. 5. GERD ?Gastritis causing retrosternal discomfort PPI 6. HTN - Continue Metoprolol (dose increased). On Norvasc at home - held for now due to borderline BP. 7. Neuropathy - continue Lyrica. DVT Px - SCDs. Dispo - needs PT eval.
[2019-10-29] MEDS ORDERED: SODIUM CHLORIDE 1,000 ML IV SCH (13:30)
[2019-10-29] MEDS ORDERED: SODIUM CHLORIDE 250 ML IV STA (16:39)
--- NOTE | 2019-10-29 16:39 | PN ---
Progress Note, Physician History of Present Illness: Pt seen and examined at bedside. She is awake and alert. She is out of bed to chair. She denies chest pain. - Current Medication List Current Medications: Active Medications Amiodarone HCl (Cordarone -) 400 mg PO BID [facility] Last Admin: 10/29/19 11:35 Dose: 400 mg Documented by: Aspirin (Asa -) 81 mg PO DAILY [facility] Last Admin: 10/29/19 09:57 Dose: 81 mg Documented by: Sodium Chloride (Normal Saline -) 1,000 mls @ 100 mls/hr IV ASDIR [facility] Stop: 10/29/19 23:29 Metoprolol Succinate (Toprol Xl -) 100 mg PO BID [facility] Last Admin: 10/29/19 09:57 Dose: 100 mg Documented by: Pantoprazole Sodium (Protonix -) 40 mg PO ACBK [facility] Last Admin: 10/29/19 06:21 Dose: 40 mg Documented by: Pregabalin (Lyrica -) 100 mg PO BID [facility] Last Admin: 10/29/19 09:58 Dose: 100 mg Documented by: Tacrolimus (Prograf) 1 mg PO HS [facility] Last Admin: 10/28/19 21:54 Dose: 1 mg Documented by: Tacrolimus (Prograf) 1.5 mg PO DAILY [facility] Last Admin: 10/29/19 09:58 Dose: 1.5 mg Documented by: - Objective Vital Signs: Vital Signs Temperature 97.5 F L 10/29/19 14:00 Pulse Rate 62 10/29/19 14:00 Respiratory Rate 18 10/29/19 14:00 Blood Pressure 107/53 L 10/29/19 14:00 O2 Sat by Pulse Oximetry (%) 98 10/29/19 09:47 Constitutional: Yes: Calm Eyes: Yes: Conjunctiva Clear HENT: Yes: Atraumatic Neck: Yes: Supple Cardiovascular: Yes: S1, S2 Respiratory: Yes: CTA Bilaterally Gastrointestinal: Yes: Normal Bowel Sounds, Soft Genitourinary: Yes: WNL Edema: No Integumentary: Yes: WNL Neurological: Yes: Oriented Psychiatric: Yes: Oriented Labs: CBC, BMP 10/29/19 11:00 10/29/19 11:00 INR, PTT INR 0.87 (0.83-1.09) 10/27/19 21:15 Problem List - Problems (1) Kidney transplant recipient Code(s): Z94.0 - KIDNEY TRANSPLANT STATUS (2) Chest pain Code(s): R07.9 - CHEST PAIN, UNSPECIFIED Qualifiers: Chest pain type: precordial pain Qualified Code(s): R07.2 - Precordial pain (3) Renal insufficiency Code(s): N28.9 - DISORDER OF KIDNEY AND URETER, UNSPECIFIED Assessment/Plan Current Medications Generic Name Dose Route Start Last Admin Trade Name Arnie PRN Reason Stop Dose Admin Amiodarone HCl 400 mg 10/29/19 10:30 10/29/19 11:35 Cordarone - PO 400 mg BID MARK ANTHONY Administration Aspirin 81 mg 10/28/19 10:00 10/29/19 09:57 Asa - PO 81 mg DAILY MARK ANTHONY Administration Sodium Chloride 1,000 mls @ 100 mls/hr 10/29/19 13:30 Normal Saline - IV 10/29/19 23:29 ASDIR MARK ANTOHNY Metoprolol Succinate 100 mg 10/28/19 10:00 10/29/19 09:57 Toprol Xl - PO 100 mg BID MARK ANTHONY Administration Pantoprazole Sodium 40 mg 10/28/19 07:00 10/29/19 06:21 Protonix - PO 40 mg ACBK MARK ANTHONY Administration Pregabalin 100 mg 10/28/19 10:00 10/29/19 09:58 Lyrica - PO 100 mg BID MARK ANTHONY Administration Tacrolimus 1 mg 10/28/19 22:00 10/28/19 21:54 Prograf PO 1 mg HS MARK ANTHONY Administration Tacrolimus 1.5 mg 10/28/19 10:00 10/29/19 09:58 Prograf PO 1.5 mg DAILY MARK ANTHONY Administration Impression 1. kidney transplant 2. chest pain 3. a-fib 4. cad 5. cataracts 6. aicd firing from v-tach 7. hyperkalemia 8. CKD 9. SHANITA Plan - renal function is worse - d/c lasix - start fluids - repeat labs in am - check ultrasound of graft to r/o obstructive disease - check prograf level in am - will also give small bolus - fluids should help with potassium as well - avoid nepnrotoxins - discussed with medical team
[2019-10-29 22:24] LABS: EPI CELLS >36 /uL (0-25.1); HYALINE CASTS 8 /uL (0-3.1); URINE APPEARANCE CLOUDY; URINE BACTERIA 104 /uL (0-1359); URINE BILIRUBIN NEGATIVE (NEGATIVE); URINE COLOR YELLOW; URINE GLUCOSE (UA) NEGATIVE (NEGATIVE); URINE KETONE TRACE (NEGATIVE); URINE LEUK ESTERASE TRACE (NEGATIVE); URINE NITRITE NEGATIVE (NEGATIVE); URINE PROTEIN NEGATIVE (NEGATIVE); URINE RBC 10 /uL (0-23.9); URINE WBC 42 /uL (0-25.8)
[2019-10-29] MEDS: TACROLIMUS ANHYDROUS 1 MG CAPSULE PO SCH (22:46)
[2019-10-30] MEDS: PANTOPRAZOLE 40 MG TABLET PO SCH (06:34)
[2019-10-30 07:48] LABS: HEMATOCRIT 40.8 % (32.4-45.2); HEMOGLOBIN 13.6 GM/dL (10.7-15.3); MCH 29.7 pg (25.7-33.7); MCHC 33.2 g/dl (32.0-36.0); MEAN CELL VOLUME 89.4 fl (80-96); MEAN PLT VOLUME 11.9 fl (7.5-11.1); PLATELET COUNT 124 K/MM3 (134-434); RBC 4.56 M/mm3 (3.60-5.2); RDW 14.5 % (11.6-15.6)
[2019-10-30 07:53] LABS: ALBUMIN 3.6 g/dl (3.4-5.0); BILIRUBIN,TOTAL 0.5 mg/dL (0.2-1); BLOOD UREA NITROGEN 43.1 mg/dL (7-18); CALCIUM 8.8 mg/dL (8.5-10.1); CREATININE 2.3 mg/dL (0.55-1.3); MAGNESIUM 2.7 mg/dL (1.8-2.4); PHOSPHOROUS 4.4 mg/dL (2.5-4.9); POTASSIUM 4.5 mmol/L (3.5-5.1); TOT PROT 6.5 g/dl (6.4-8.2)
[2019-10-30] MEDS ORDERED: PT OWN MED DRAWER 7, Y5N ONE ×2 (09:14→21:58)
[2019-10-30] MEDS: PREGABALIN 100 MG CAPSULE PO SCH ×2 (09:23→23:09)
[2019-10-30] MEDS: TACROLIMUS 0.5 MG CAPSULE PO SCH (09:23)
[2019-10-30] MEDS: AMIODARONE HCL 200 MG TABLET PO SCH (09:23)
[2019-10-30] MEDS: ASPIRIN 81 MG CHEWABLE TABLETS PO SCH (09:23)
--- NOTE | 2019-10-30 10:07 | PN ---
Progress Note, Physician Chief Complaint: Events noted Not in distress History of Present Illness: Patient was seen and examined. Awake and alert. Chart was reviewed Denies chest pain, SOB or palpitations Patient states that she was recommended Entresto as outpatient, but was not started. She used to take Chlorothalidone int he past but has not been taking it - Current Medication List Current Medications: Active Medications Amiodarone HCl (Cordarone -) 400 mg PO BID [facility] Last Admin: 10/30/19 09:23 Dose: 400 mg Documented by: Aspirin (Asa -) 81 mg PO DAILY [facility] Last Admin: 10/30/19 09:23 Dose: 81 mg Documented by: Metoprolol Succinate (Toprol Xl -) 100 mg PO BID [facility] Last Admin: 10/30/19 09:23 Dose: 100 mg Documented by: Pantoprazole Sodium (Protonix -) 40 mg PO ACBK [facility] Last Admin: 10/30/19 06:34 Dose: 40 mg Documented by: Pregabalin (Lyrica -) 100 mg PO BID [facility] Last Admin: 10/30/19 09:23 Dose: 100 mg Documented by: Tacrolimus (Prograf) 1 mg PO HS [facility] Last Admin: 10/29/19 22:46 Dose: 1 mg Documented by: Tacrolimus (Prograf) 1.5 mg PO DAILY [facility] Last Admin: 10/30/19 09:23 Dose: 1.5 mg Documented by: - Objective Vital Signs: Vital Signs Temperature 97.0 F L 10/30/19 06:00 Pulse Rate 60 10/30/19 06:00 Respiratory Rate 20 10/30/19 06:00 Blood Pressure 114/71 10/30/19 06:00 O2 Sat by Pulse Oximetry (%) 96 10/29/19 20:57 Eyes: Yes: PERRL HENT: Yes: Atraumatic Neck: Yes: Supple Cardiovascular: Yes: Regular Rate and Rhythm, S1, S2 Respiratory: Yes: CTA Bilaterally Gastrointestinal: Yes: Normal Bowel Sounds, Soft. No: Tenderness Edema: No Additional Findings/Remarks: - Review of Systems Constitutional: denies: Chills, Fever Cardiovascular: reports: Chest Pain, denies:Shortness of Breath. denies: Palpitations Respiratory: denies SOB. denies: Cough, Hemoptysis, Orthopnea, PND Gastrointestinal: denies: Abdominal Pain, Constipation, Diarrhea, Melena, Nausea, Rectal Bleeding, Vomiting Neurological: denies: Dizziness, Headache, Seizure, Syncope Labs: CBC, BMP 10/30/19 06:40 10/30/19 06:40 INR, PTT INR 0.87 (0.83-1.09) 10/27/19 21:15 Problem List - Problems (1) Ventricular dysrhythmia Code(s): I49.9 - CARDIAC ARRHYTHMIA, UNSPECIFIED (2) Ischemic cardiomyopathy Code(s): I25.5 - ISCHEMIC CARDIOMYOPATHY (3) CAD (coronary artery disease) Code(s): I25.10 - ATHSCL HEART DISEASE OF [place] CORONARY ARTERY W/O ANG PCTRS Qualifiers: Coronary Disease-Associated Artery/Lesion type: [place] artery [place] vs. transplanted heart: [place] heart Associated angina: without angina Qualified Code(s): I25.10 - Atherosclerotic heart disease of [place] coronary artery without angina pectoris (4) HLD (hyperlipidemia) Code(s): E78.5 - HYPERLIPIDEMIA, UNSPECIFIED Qualifiers: Hyperlipidemia type: pure hypercholesterolemia Qualified Code(s): E78.00 - Pure hypercholesterolemia, unspecified; E78.0 - Pure hypercholesterolemia (5) HTN (hypertension) Code(s): I10 - ESSENTIAL (PRIMARY) HYPERTENSION Qualifiers: Hypertension type: essential hypertension Qualified Code(s): I10 - Essential (primary) hypertension (6) ICD (implantable cardioverter-defibrillator) in place Code(s): Z95.810 - PRESENCE OF AUTOMATIC (IMPLANTABLE) CARDIAC DEFIBRILLATOR (7) Renal insufficiency Code(s): N28.9 - DISORDER OF KIDNEY AND URETER, UNSPECIFIED (8) Hyperkalemia Code(s): E87.5 - HYPERKALEMIA Assessment/Plan 1. Chest pain and dyspnea referable to acute on chronic diastolic/systolic heart failure 2. Ischemic dilated cardiomyopathy LVEF 35-30% 3.Coronary artery disease status post remote myocardial infarction at age 18 post percutaneous coronary intervention/report of procedure not available angina pectoris, clinically stable. 4. Paroxysmal ventricular tachycardia post [employer]-D/[employer]'s MRI conditional device ([employer]ia MRI- [id number]/[id number]) with recent appropriate discharge 5. Paroxysmal atrial fibrillation currently off of anticoagulation therapy rel ated to hemoptysis, [id number] score of 4- Watchman device/left atrial appendage closure device implantation recommended but has not been performed as of yet- patient reluctance to proceed with the above-noted procedure. 6.History of paroxysmal supraventricular tachycardia, cannot exclude paroxysmal atypical atrial flutter. 7.Hypertensive cardiovascular disease, labile blood pressurenot at goal- elevated diastolic blood pressure measurement. 8. Hypercholesterolemia. 9. History of seizure disorder. 10. History of chronic bronchitis. 11. History of gastroesophageal reflux disease with Lundy's esophagus. 12. Chronic kidney disease post renal transplantation. PLAN: 1. Diuresis as needed. Renal input noted to avoid nephrotoxic agents 2. IV amiodarone loading done and currently continue Amidarone 400 mg PO QD. EP referral as outpatient for VT ablation 3. Continue Toprol XL 100 mg BID and [id number]/26 mg BID when renal function stabilizes. Consider Aldactone 25 mg QD once hyperkalemia and renal function stabilizes. These can be clarified in the office with Dr. Vasquez. 4. Patient was strongly counseled dietary compliance including salt restri ction/caloric restrictionandincrease ambulation as tolerated, NSAID avoidance 5. [employer]-D interrogation and remoteCRT-D monitoring via [employer]'s [facility] serviceas scheduled. 6. F/u with Dr. Vasquez post discharge Further plans are to follow Roger Alicia MD
--- NOTE | 2019-10-30 12:27 | PN ---
Progress Note, Physician History of Present Illness: Pt seen and examined at bedside. She denies shortness of breath. She denies dysuria or hematuria. - Current Medication List Current Medications: Active Medications Amiodarone HCl (Cordarone -) 400 mg PO BID [facility] Last Admin: 10/30/19 09:23 Dose: 400 mg Documented by: Aspirin (Asa -) 81 mg PO DAILY [facility] Last Admin: 10/30/19 09:23 Dose: 81 mg Documented by: Metoprolol Succinate (Toprol Xl -) 100 mg PO BID [facility] Last Admin: 10/30/19 09:23 Dose: 100 mg Documented by: Pantoprazole Sodium (Protonix -) 40 mg PO ACBK [facility] Last Admin: 10/30/19 06:34 Dose: 40 mg Documented by: Pregabalin (Lyrica -) 100 mg PO BID [facility] Last Admin: 10/30/19 09:23 Dose: 100 mg Documented by: Tacrolimus (Prograf) 1 mg PO HS [facility] Last Admin: 10/29/19 22:46 Dose: 1 mg Documented by: Tacrolimus (Prograf) 1.5 mg PO DAILY [facility] Last Admin: 10/30/19 09:23 Dose: 1.5 mg Documented by: - Objective Vital Signs: Vital Signs Temperature 98.2 F 10/30/19 10:00 Pulse Rate 60 10/30/19 10:00 Respiratory Rate 20 10/30/19 10:00 Blood Pressure 129/60 10/30/19 10:00 O2 Sat by Pulse Oximetry (%) 96 10/30/19 10:00 Constitutional: Yes: Calm Eyes: Yes: Conjunctiva Clear HENT: Yes: Atraumatic Neck: Yes: Supple Cardiovascular: Yes: S1, S2 Respiratory: Yes: CTA Bilaterally Gastrointestinal: Yes: Soft Genitourinary: Yes: WNL, Other (neg bruit on graft, non tender) Musculoskeletal: Yes: WNL Edema: No Neurological: Yes: Oriented Psychiatric: Yes: Oriented Labs: CBC, BMP 10/30/19 06:40 10/30/19 06:40 INR, PTT INR 0.87 (0.83-1.09) 10/27/19 21:15 Problem List - Problems (1) Kidney transplant recipient Code(s): Z94.0 - KIDNEY TRANSPLANT STATUS (2) Chest pain Code(s): R07.9 - CHEST PAIN, UNSPECIFIED Qualifiers: Chest pain type: precordial pain Qualified Code(s): R07.2 - Precordial pain (3) Renal insufficiency Code(s): N28.9 - DISORDER OF KIDNEY AND URETER, UNSPECIFIED Assessment/Plan Current Medications Generic Name Dose Route Start Last Admin Trade Name Freq PRN Reason Stop Dose Admin Amiodarone HCl 400 mg 10/29/19 10:30 10/30/19 09:23 Cordarone - PO 400 mg BID MARK ANTHONY Administration Aspirin 81 mg 10/28/19 10:00 10/30/19 09:23 Asa - PO 81 mg DAILY MARK ANTHONY Administration Metoprolol Succinate 100 mg 10/28/19 10:00 10/30/19 09:23 Toprol Xl - PO 100 mg BID MARK ANTHONY Administration Pantoprazole Sodium 40 mg 10/28/19 07:00 10/30/19 06:34 Protonix - PO 40 mg ACBK MARK ANTHONY Administration Pregabalin 100 mg 10/28/19 10:00 10/30/19 09:23 Lyrica - PO 100 mg BID MARK ANTHONY Administration Tacrolimus 1 mg 10/28/19 22:00 10/29/19 22:46 Prograf PO 1 mg HS MARK ANTHONY Administration Tacrolimus 1.5 mg 10/28/19 10:00 10/30/19 09:23 Prograf PO 1.5 mg DAILY MARK ANTHONY Administration Laboratory Tests 10/10/14 04/10/15 04/11/15 05:00 21:10 08:15 WBC Hgb Sodium Potassium Creatinine 1.5 H D 1.3 H 1.2 H B-Natriuretic Peptide Urine Protein Urine Blood COVID-19 (MARY) 04/12/15 04/13/15 05/13/16 08:15 07:00 14:51 WBC Hgb Sodium Potassium Creatinine 1.4 H 1.3 H 1.2 H B-Natriuretic Peptide Urine Protein Urine Blood COVID-19 (MARY) 10/27/19 10/27/19 10/27/19 21:15 21:15 21:15 WBC 4.5 Hgb 13.4 Sodium 142 Potassium 5.3 H Creatinine 1.3 B-Natriuretic Peptide 1626.2 H Urine Protein Urine Blood COVID-19 (MARY) 10/27/19 10/28/19 10/28/19 21:30 00:37 03:36 WBC Hgb Sodium 140 Potassium 4.9 Creatinine 1.4 H B-Natriuretic Peptide Urine Protein Negative Urine Blood Negative COVID-19 (MARY) Pending Impression 1. kidney transplant 2. chest pain 3. a-fib 4. cad 5. cataracts 6. aicd firing from v-tach 7. hyperkalemia 8. CKD 9. 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
[2019-10-30] MEDS ORDERED: SODIUM CHLORIDE 0.45% 1,000 ML IV SCH (12:30)
--- NOTE | 2019-10-30 13:57 | PN ---
Progress Note (short form) - Note Progress Note: SUBJECTIVE: Feels well - some intermittent chest discomfort. No further nausea/vomiting. No fever/chills. No dysuria/hematuria. OBJECTIVE: Afebrile, Hemodynamically stable. Last Vital Signs Temp Pulse Resp BP Pulse Ox 98.2 F 60 20 129/60 96 10/30/19 10:00 10/30/19 10:00 10/30/19 10:00 10/30/19 10:00 10/30/19 10:00 Heart - S1, S2, Irregular Lungs - clear to auscultation Abdomen - Soft, mild epigastric tenderness, multiple scars from abdominal surgeries. Bowel Sounds normal. Extremities - no calf tenderness, trace edema. L forearm AV fistula. Neuro - AAO x 3. Tone/Power normal all 4 extremities. Laboratory Results - last 24 hr 10/29/19 10/29/19 10/29/19 16:10 21:45 22:10 WBC RBC Hgb Hct MCV MCH MCHC RDW Plt Count MPV Sodium Potassium Chloride Carbon Dioxide Anion Gap BUN Creatinine Est GFR (CKD-EPI)AfAm Est GFR (CKD-EPI)NonAf Random Glucose Calcium Phosphorus Magnesium Total Bilirubin AST ALT Alkaline Phosphatase Creatine Kinase 31 Troponin I < 0.02 < 0.02 Total Protein Albumin Urine Color Yellow Urine Appearance Cloudy Urine pH 5.0 Ur Specific Witt 1.019 Urine Protein Negative Urine Glucose (UA) Negative Urine Ketones Trace H Urine Blood Negative Urine Nitrite Negative Urine Bilirubin Negative Urine Urobilinogen 1.0 Ur Leukocyte Esterase Trace Urine WBC (Auto) 42 Urine RBC (Auto) 10 Urine Casts (Auto) 8 U Epithel Cells (Auto) >36 Urine Bacteria (Auto) 104 Ur Random Creatinine Ur Random Sodium Ur Random Potassium Ur Random Chloride 10/29/19 10/30/19 10/30/19 22:10 06:40 06:40 WBC 4.0 RBC 4.56 Hgb 13.6 Hct 40.8 MCV 89.4 MCH 29.7 MCHC 33.2 RDW 14.5 Plt Count 124 L D MPV 11.9 H Sodium 142 Potassium 4.5 Chloride 106 Carbon Dioxide 27 Anion Gap 8 BUN 43.1 H Creatinine 2.3 H Est GFR (CKD-EPI)AfAm 26.83 Est GFR (CKD-EPI)NonAf 23.15 Random Glucose 112 H Calcium 8.8 Phosphorus 4.4 Magnesium 2.7 H Total Bilirubin 0.5 AST 12 L ALT 16 Alkaline Phosphatase 69 Creatine Kinase Troponin I Total Protein 6.5 Albumin 3.6 Urine Color Urine Appearance Urine pH Ur Specific Witt Urine Protein Urine Glucose (UA) Urine Ketones Urine Blood Urine Nitrite Urine Bilirubin Urine Urobilinogen Ur Leukocyte Esterase Urine WBC (Auto) Urine RBC (Auto) Urine Casts (Auto) U Epithel Cells (Auto) Urine Bacteria (Auto) Ur Random Creatinine 222.0 H Ur Random Sodium 28 L Ur Random Potassium 74.0 Ur Random Chloride < 11 L Current Medications Generic Name Dose Route Start Last Admin Trade Name Freq PRN Reason Stop Dose Admin Amiodarone HCl 400 mg 10/29/19 10:30 10/30/19 09:23 Cordarone - PO 400 mg BID MARK ANTHONY Administration Aspirin 81 mg 10/28/19 10:00 10/30/19 09:23 Asa - PO 81 mg DAILY MARK ANTHONY Administration Sodium Chloride 1,000 mls @ 75 mls/hr 10/30/19 12:30 10/30/19 13:51 1/2 Normal Saline IV 75 mls/hr ASDIR MARK ANTHONY Administration Metoprolol Succinate 100 mg 10/28/19 10:00 10/30/19 09:23 Toprol Xl - PO 100 mg BID MARK ANTHONY Administration Pantoprazole Sodium 40 mg 10/28/19 07:00 10/30/19 06:34 Protonix - PO 40 mg ACBK MARK ANTHONY Administration Pregabalin 100 mg 10/28/19 10:00 10/30/19 09:23 Lyrica - PO 100 mg BID MARK ANTHONY Administration Tacrolimus 1 mg 10/28/19 22:00 10/29/19 22:46 Prograf PO 1 mg HS MARK ANTHONY Administration Tacrolimus 1.5 mg 10/28/19 10:00 10/30/19 09:23 Prograf PO 1.5 mg DAILY MARK ANTHONY Administration Home Medications Medication Instructions Recorded Pregabalin [Lyrica] 100 mg PO BID 05/13/16 Tacrolimus [Prograf] 1 mg PO BID 05/13/16 Esomeprazole Magnesium [Nexium 40 mg PO BID 10/27/19 24Hr] Tacrolimus Anhydrous [Prograf] 0.5 mg PO HS 10/28/19 Amiodarone HCl [Cordarone -] 400 mg PO DAILY 30 Days #30 tablet 10/29/19 Metoprolol Succinate [Toprol XL -] 100 mg PO BID 30 Days #60 08/15/20 tab.sr.24h ASSESSMENT AND PLAN: 54 year old female with history of ESRD (previously on HD via LUE AVF, s/p kidney transplants , CAD s/p [place] at age 18 s/p PCI, Chronic Systolic CHF, s/p PPM/AICD, prolonged hospitalization for pulmonary hemorrhage due to Eliquis (long stay in ICU at [facility]; tracheostomy reversed), Atrial Fibrillation, Asthma, IBS, s/p resection of Sigmoid adenoma (age 18), Neuropathy, Lundy's esophagus and Thyromegaly presents with right-sided and substernal chest pain with some SOB. She recently saw Cardiology as out-patient 10/25 as her AICD fired due to paroxysmal ventricular tachycardia. 1. Atypical Chest discomfort ?etiology Elevated BNP, Cardiomegaly and increased interstitial markings on CXR EF 20-25% 05/05 Cardiology initially treated for Acute decompensation of Systolic CHF/Dilated Cardiomyopathy with IV Lasix - now discontinued TropI neg x 2. ECG - Atrial fibrillation, no acute changes. Evaluated by Cardiology and started on IV Lasix, now stopped due to SHANITA. Daily weight, I/Os Continue Metoprolol (dose increased). Cardiology recommends resuming Entresto and to transition from Chlorthalidone to Spironolactone - however, patient is not on either of these medications at home - will hold off for now due to borderline BP/SHANITA/Hyperkalemia. For follow up with Dr. Vasquez as out-patient for further medication titration/optimization. 2. Paroxysmal Atrial fibrillation with paroxysmal ventricular tachycardia Required AICD shock 10/25 Cardiology recommends out-patient EP study and eval for VT ablation. To continue Amiodarone 400mg daily.as per Cardio Metoprolol dose increased Off AC due to history of Pulmonary hemorrhage - Watchman device/left atrial appendage closure recommended by Cardiology. 3. SHANITA with Hyperkalemia - Creat persisting at 2.3, likely sec to Lasix diuresis Lasix held. Started on gentle hydration, Nephrology following 4. ESRD s/p Renal transplant x 2. SHANITA due to lasix diuresis - gentle hydration ongoing. Continue Tacrolimus, level pending. 5. GERD ?Gastritis causing retrosternal discomfort PPI 6. HTN - Continue Metoprolol (dose increased). On Norvasc at home - held for now due to borderline BP. 7. Neuropathy - continue Lyrica. DVT Px - SCDs. Dispo - PT eval ordered. Visit type - Emergency Visit Emergency Visit: Yes ED Registration Date: 10/27/19 Care time: The patient presented to the Emergency Department on the above date and was hospitalized for further evaluation of their emergent condition. - New Patient This patient is new to me today: No - Critical Care Critical Care patient: No - Discharge Referral Referred to [facility] Med P.C.: No
[2019-10-30 17:12] LABS: EPI CELLS >36 /uL (0-25.1); HYALINE CASTS 0 /uL (0-3.1); URINE APPEARANCE CLEAR; URINE BACTERIA 543 /uL (0-1359); URINE BILIRUBIN NEGATIVE (NEGATIVE); URINE COLOR YELLOW; URINE GLUCOSE (UA) NEGATIVE (NEGATIVE); URINE KETONE NEGATIVE (NEGATIVE); URINE LEUK ESTERASE 1+ (NEGATIVE); URINE NITRITE NEGATIVE (NEGATIVE); URINE PROTEIN NEGATIVE (NEGATIVE); URINE RBC 4 /uL (0-23.9); URINE UROBILINOGEN 0.2 mg/dL (0.2-1.0); URINE WBC 69 /uL (0-25.8)
--- NOTE | 2019-10-30 18:17 | EKG ---
Test Reason : Blood Pressure : / mmHG Vent. Rate : 067 BPM Atrial Rate : 067 BPM P-R Int : 166 ms QRS Dur : 154 ms QT Int : 486 ms P-R-T Axes : 080 -34 117 degrees QTc Int : 513 ms AV dual-paced rhythm WITH FREQUENT PREMATURE VENTRICULAR COMPLEXES ABNORMAL ECG WHEN COMPARED WITH ECG OF 28-OCT-2019 08:49, PREMATURE VENTRICULAR COMPLEXES ARE NOW PRESENT VENT. RATE HAS INCREASED BY 7 BPM Confirmed by MD CORNELL MOYSES ([id number]) on 10/30/2019 6:17:04 PM Referred By: Confirmed By:SILVANO CORNELL MD
--- NOTE | 2019-10-30 18:47 | EKG ---
Test Reason : Blood Pressure : / mmHG Vent. Rate : 060 BPM Atrial Rate : 060 BPM P-R Int : 108 ms QRS Dur : 164 ms QT Int : 530 ms P-R-T Axes : 024 -38 109 degrees QTc Int : 530 ms Atrial-sensed ventricular-paced rhythm ABNORMAL ECG WHEN COMPARED WITH ECG OF 28-OCT-2019 06:48, NO SIGNIFICANT CHANGE WAS FOUND Confirmed by MD CORNELL MOYSES ([id number]) on 10/30/2019 6:47:13 PM Referred By: Confirmed By:SILVANO CORNELL MD
[2019-10-30] MEDS: TACROLIMUS ANHYDROUS 1 MG CAPSULE PO SCH (23:09)
[2019-10-31] MEDS: PANTOPRAZOLE 40 MG TABLET PO SCH (06:57)
[2019-10-31 07:53] LABS: ALBUMIN 3.5 g/dl (3.4-5.0); BILIRUBIN,TOTAL 0.6 mg/dL (0.2-1); BLOOD UREA NITROGEN 36.1 mg/dL (7-18); CALCIUM 8.6 mg/dL (8.5-10.1); CREATININE 1.7 mg/dL (0.55-1.3); POTASSIUM 4.7 mmol/L (3.5-5.1); TOT PROT 6.2 g/dl (6.4-8.2)
--- NOTE | 2019-10-31 08:45 | PN ---
Progress Note, Physician History of Present Illness: 54-year-old female with known history of coronary artery disease statu s post myocardial infarction at age 18 status post percutaneous coronary intervention/report of procedure not available angina pectoris, systolic left ventricular dysfunction related to ischemic dilated cardiomyopathy with chronic class I-II [place] [employer] classification left ventricular failure (LVEF between 20-25% on echocardiography performedApril 28, 2019), sustained ventricular tachycardia post LANOLIN PLANT OPERATOR-D/[employer] MRI conditional device (Amplia MRI- [id number]/Yevgeniyan), paroxysmal atrial fibrillation currently off of anticoagulation therapy related to hemoptysis [id number] score of 4 (Hemoptysis noted on Eliquis therapy)-(left atrial appendage closure device implantation/Watchman device implantation was recommended as an alternative but patient thus far has declined), paroxysmal supraventricular tachycardia cannot exclude paroxysmal atypical atrial flutter, mitral valve regurgitation mild to moderate in severity on echocardiography performed March 10, 2018/mild in severity on echocardiography performed April 28, 2019, tricuspid valve regurgitation trace in severity with no evidence of pulmonary hypertension on echocardiography performed March 10, 2018/April 28, 2019-RVSP of 14 mm Hg, hypertensive cardiovascular disease /labile blood pressure, hypercholesterolemia, trace pericardial effusion on echocardiography performed March 10, 2018, seizure disorder, chronic bronchitis, gastroesophageal reflux disease with Lundy's esophagus and chronic kidney disease post renal transplantation who last was [id number]/12/2020 after appropriate ICD discharge c/w paroxysmal ventricular tachycardia presented for right-sided chest pain, SOB and orthopnea, has not been compliant with remote monitoring. Started IV amio load and IV diuresis. - Current Medication List Current Medications: Active Medications Albuterol/Ipratropium (Duoneb -) 1 amp NEB RQID [facility] Amiodarone HCl (Cordarone -) 400 mg PO DAILY [facility] Aspirin (Asa -) 81 mg PO DAILY [facility] Last Admin: 10/30/19 09:23 Dose: 81 mg Documented by: Sodium Chloride (1/2 Normal Saline) 1,000 mls @ 75 mls/hr IV ASDIR [facility] Last Admin: 10/30/19 13:51 Dose: 75 mls/hr Documented by: Metoprolol Succinate (Toprol Xl -) 100 mg PO BID [facility] Last Admin: 10/30/19 23:09 Dose: 100 mg Documented by: Pantoprazole Sodium (Protonix -) 40 mg PO ACBK [facility] Last Admin: 10/31/19 06:57 Dose: 40 mg Documented by: Pregabalin (Lyrica -) 100 mg PO BID [facility] Last Admin: 10/30/19 23:09 Dose: 100 mg Documented by: Tacrolimus (Prograf) 1 mg PO HS [facility] Last Admin: 10/30/19 23:09 Dose: 1 mg Documented by: Tacrolimus (Prograf) 1.5 mg PO DAILY [facility] Last Admin: 10/30/19 09:23 Dose: 1.5 mg Documented by: - Objective Vital Signs: Vital Signs Temperature 97.6 F 10/31/19 05:00 Pulse Rate 73 10/31/19 05:00 Respiratory Rate 18 10/31/19 05:00 Blood Pressure 139/76 10/31/19 05:00 O2 Sat by Pulse Oximetry (%) 93 L 10/31/19 05:00 Labs: CBC, BMP 10/30/19 06:40 10/31/19 06:55 INR, PTT INR 0.87 (0.83-1.09) 10/27/19 21:15 Problem List - Problems (1) Chest pain Code(s): R07.9 - CHEST PAIN, UNSPECIFIED Qualifiers: Chest pain type: precordial pain Qualified Code(s): R07.2 - Precordial pain (2) Dyspnea Code(s): R06.00 - DYSPNEA, UNSPECIFIED Qualifiers: Dyspnea type: shortness of breath Qualified Code(s): R06.02 - Shortness of breath; R06.00 - Dyspnea, unspecified; R06.01 - Orthopnea (3) Heart failure Code(s): I50.9 - HEART FAILURE, UNSPECIFIED Qualifiers: Heart failure type: combined systolic and diastolic Heart failure chronicity: acute on chronic Qualified Code(s): I50.43 - Acute on chronic combined systolic (congestive) and diastolic (congestive) heart failure (4) Ventricular dysrhythmia Code(s): I49.9 - CARDIAC ARRHYTHMIA, UNSPECIFIED (5) Ischemic cardiomyopathy Code(s): I25.5 - ISCHEMIC CARDIOMYOPATHY (6) Renal transplant recipient Code(s): Z94.0 - KIDNEY TRANSPLANT STATUS (7) CAD (coronary artery disease) Code(s): I25.10 - ATHSCL HEART DISEASE OF [place] CORONARY ARTERY W/O ANG PCTRS Qualifiers: Coronary Disease-Associated Artery/Lesion type: [place] artery [place] vs. transplanted heart: [place] heart Associated angina: without angina Qualified Code(s): I25.10 - Atherosclerotic heart disease of [place] coronary artery without angina pectoris (8) HLD (hyperlipidemia) Code(s): E78.5 - HYPERLIPIDEMIA, UNSPECIFIED Qualifiers: Hyperlipidemia type: pure hypercholesterolemia Qualified Code(s): E78.00 - Pure hypercholesterolemia, unspecified; E78.0 - Pure hypercholesterolemia (9) HTN (hypertension) Code(s): I10 - ESSENTIAL (PRIMARY) HYPERTENSION Qualifiers: Hypertension type: essential hypertension Qualified Code(s): I10 - Essential (primary) hypertension (10) ICD (implantable cardioverter-defibrillator) in place Code(s): Z95.810 - PRESENCE OF AUTOMATIC (IMPLANTABLE) CARDIAC DEFIBRILLATOR (11) Renal insufficiency Code(s): N28.9 - DISORDER OF KIDNEY AND URETER, UNSPECIFIED Assessment/Plan Echocardiography performed April 28, 2019 revealed mild concentric left ventricular hypertrophy with severe reduction in left ventricular systolic function, estimated LVEF between 25-30%, mild left atrial dilatation, poorly visualized right ventricle, aortic valve leaflet sclerosis without leaflet restriction, mild mitral valve regurgitation, mild tricuspid valve regurgitation with calculated RVSP of 14 mmHg. Echocardiography performed March 10, 2018 revealed moderate left ventricular cavity dilatation with severe reduction in left ventricular systolic function estimated LVEF between 20-25%, mild left atrial dilatation, poorly visualize right ventricle, no aortic valve stenosis, mild to moderate mitral valve regurgitation, trace tricuspid valve regurgitation, trace pericardial effusion. 1. Chest pain and dyspnea referable to acute on chronic diastolic/systolic heart failure 2. Ischemic dilated cardiomyopathy LVEF 35-30% 3.Coronary artery disease status post remote myocardial infarction at age 18 p ost percutaneous coronary intervention/report of procedure not available angina pectoris, clinically stable. 4. Paroxysmal ventricular tachycardia post LANOLIN PLANT OPERATOR-D/[employer]'s MRI conditional device (Amplia MRI- [id number]/Tucker) with recent appropriate discharge 5. Paroxysmal atrial fibrillation currently off of anticoagulation therapy related to hemoptysis, [id number] score of 4- Watchman device/left atrial appendage closure device implantation recommended but has not been performed as of yet- patient reluctance to proceed with the above-noted procedure. 6.History of paroxysmal supraventricular tachycardia, cannot exclude paroxysmal atypical atrial flutter. 7.Hypertensive cardiovascular disease, labile blood pressurenot at goal- elevated diastolic blood pressure measurement. 8. Hypercholesterolemia. 9. History of seizure disorder. 10. History of chronic bronchitis. 11. History of gastroesophageal reflux disease with Lundy's esophagus. 12. Chronic kidney disease post renal transplantation. PLAN: 1. Diuresis as needed. Renal input noted to avoid nephrotoxic agents 2. IV amiodarone loading done and currently continue Amidarone 400 mg PO QD. EP referral as outpatient for VT ablation 3. Continue Toprol XL 100 mg BID and eazfslfmVwlbxhps14/26 mg BID when renal function stabilizes. Consider Aldactone 25 mg QD once hyperkalemia and renal function stabilizes. These can be clarified in the office with Dr. Vasquez. 4. Patient was strongly counseled dietary compliance including salt restriction/caloric restrictionandincrease ambulation as tolerated, NSAID avoidance 5. LANOLIN PLANT OPERATOR-D interrogation and remoteCRT-D monitoring via [employer]'s [employer] serviceas scheduled. 6. F/u with Dr. Vasquez post discharge
[2019-10-31] MEDS: ALBUTEROL SO4 2.5/IPRATROPIUM 0.5 INH SOL 3 ML VIAL.NEB. NEB SCH ×4 (08:51→20:40)
[2019-10-31] MEDS ORDERED: PT OWN MED DRAWER 7, Y5N ONE ×2 (08:54→21:39)
[2019-10-31] MEDS ORDERED: AMIODARONE HCL 200 MG TABLET PO SCH (10:00)
[2019-10-31] MEDS: ASPIRIN 81 MG CHEWABLE TABLETS PO SCH (10:05)
[2019-10-31] MEDS: PREGABALIN 100 MG CAPSULE PO SCH ×2 (10:05→22:00)
[2019-10-31] MEDS: TACROLIMUS 0.5 MG CAPSULE PO SCH (10:06)
--- NOTE | 2019-10-31 10:13 | PN ---
Progress Note, Physician Chief Complaint: Events noted Not in distress Feels better History of Present Illness: Patient was seen and examined. Awake and alert. Chart was reviewed Denies chest pain, SOB or palpitations - Current Medication List Current Medications: Active Medications Albuterol/Ipratropium (Duoneb -) 1 amp NEB RQID [facility] Last Admin: 10/31/19 08:51 Dose: Not Given Documented by: Amiodarone HCl (Cordarone -) 400 mg PO DAILY [facility] Last Admin: 10/31/19 10:05 Dose: 400 mg Documented by: Aspirin (Asa -) 81 mg PO DAILY [facility] Last Admin: 10/31/19 10:05 Dose: 81 mg Documented by: Sodium Chloride (1/2 Normal Saline) 1,000 mls @ 75 mls/hr IV ASDIR [facility] Last Admin: 10/30/19 13:51 Dose: 75 mls/hr Documented by: Metoprolol Succinate (Toprol Xl -) 100 mg PO BID [facility] Last Admin: 10/31/19 10:05 Dose: 100 mg Documented by: Pantoprazole Sodium (Protonix -) 40 mg PO ACBK [facility] Last Admin: 10/31/19 06:57 Dose: 40 mg Documented by: Pregabalin (Lyrica -) 100 mg PO BID [facility] Last Admin: 10/31/19 10:05 Dose: 100 mg Documented by: Tacrolimus (Prograf) 1 mg PO HS [facility] Last Admin: 10/30/19 23:09 Dose: 1 mg Documented by: Tacrolimus (Prograf) 1.5 mg PO DAILY [facility] Last Admin: 10/31/19 10:06 Dose: 1.5 mg Documented by: - Objective Vital Signs: Vital Signs Temperature 97.6 F 10/31/19 05:00 Pulse Rate 73 10/31/19 05:00 Respiratory Rate 18 10/31/19 05:00 Blood Pressure 139/76 10/31/19 05:00 O2 Sat by Pulse Oximetry (%) 93 L 10/31/19 05:00 Eyes: Yes: PERRL HENT: Yes: Atraumatic Neck: Yes: Supple Cardiovascular: Yes: Regular Rate and Rhythm, S1, S2 Respiratory: Yes: CTA Bilaterally Gastrointestinal: Yes: Normal Bowel Sounds, Soft. No: Tenderness Edema: No Additional Findings/Remarks: - Review of Systems Constitutional: denies: Chills, Fever Cardiovascular: reports: Chest Pain, denies:Shortness of Breath. denies: Palpitations Respiratory: denies SOB. denies: Cough, Hemoptysis, Orthopnea, PND Gastrointestinal: denies: Abdominal Pain, Constipation, Diarrhea, Melena, Nausea, Rectal Bleeding, Vomiting Neurological: denies: Dizziness, Headache, Seizure, Syncope Labs: CBC, BMP 10/30/19 06:40 10/31/19 06:55 INR, PTT INR 0.87 (0.83-1.09) 10/27/19 21:15 Problem List - Problems (1) Ventricular dysrhythmia Code(s): I49.9 - CARDIAC ARRHYTHMIA, UNSPECIFIED (2) Ischemic cardiomyopathy Code(s): I25.5 - ISCHEMIC CARDIOMYOPATHY (3) CAD (coronary artery disease) Code(s): I25.10 - ATHSCL HEART DISEASE OF [place] CORONARY ARTERY W/O ANG PCTRS Qualifiers: Coronary Disease-Associated Artery/Lesion type: [place] artery [place] vs. transplanted heart: [place] heart Associated angina: without angina Qualified Code(s): I25.10 - Atherosclerotic heart disease of [place] coronary artery without angina pectoris (4) HLD (hyperlipidemia) Code(s): E78.5 - HYPERLIPIDEMIA, UNSPECIFIED Qualifiers: Hyperlipidemia type: pure hypercholesterolemia Qualified Code(s): E78.00 - Pure hypercholesterolemia, unspecified; E78.0 - Pure hypercholesterolemia (5) HTN (hypertension) Code(s): I10 - ESSENTIAL (PRIMARY) HYPERTENSION Qualifiers: Hypertension type: essential hypertension Qualified Code(s): I10 - Essential (primary) hypertension (6) ICD (implantable cardioverter-defibrillator) in place Code(s): Z95.810 - PRESENCE OF AUTOMATIC (IMPLANTABLE) CARDIAC DEFIBRILLATOR (7) Renal insufficiency Code(s): N28.9 - DISORDER OF KIDNEY AND URETER, UNSPECIFIED (8) Hyperkalemia Code(s): E87.5 - HYPERKALEMIA Assessment/Plan 1. Chest pain and dyspnea referable to acute on chronic diastolic/systolic heart failure 2. Ischemic dilated cardiomyopathy LVEF 35-30% 3.Coronary artery disease status post remote myocardial infarction at age 18 post percutaneous coronary intervention/report of procedure not available angina pectoris, clinically stable. 4. Paroxysmal ventricular tachycardia post INTERNATIONAL SALES REPRESENTATIVE-D/[employer]'s MRI conditional device (Amplia MRI- [id number]/BruceRao) with recent appropriate discharge 5. Paroxysmal atrial fibrillation currently off of anticoagulation therapy related to hemoptysis, [id number] score of 4 - Watchman device/left atrial appendage closure device implantation recommended but has not been performed as of yet - patient reluctance to proceed with the above-noted procedure. 6.History of paroxysmal supraventricular tachycardia, cannot exclude paroxysmal atypical atrial flutter. 7.Hypertensive cardiovascular disease, labile blood pressurenot at goal- elevated diastolic blood pressure measurement. 8. Hypercholesterolemia. 9. History of seizure disorder. 10. History of chronic bronchitis. 11. History of gastroesophageal reflux disease with Lunyd's esophagus. 12. Chronic kidney disease post renal transplantation. PLAN: 1. Diuresis as needed. Renal input noted to avoid nephrotoxic agents 2. Continue Amidarone 400 mg PO QD. EP referral as outpatient for VT ablation 3. Continue Toprol XL 100 mg BID and lhsqzadiUwbqmvbp75/26 mg BID when renal function stabilizes. Consider Aldactone 25 mg QD once hyperkalemia and renal function stabilizes. These can be clarified in the office with Dr. Vasquez. 4. Patient was strongly counseled dietary compliance including salt restriction/caloric restrictionandincrease ambulation as tolerated, NSAID avoidance 5. INTERNATIONAL SALES REPRESENTATIVE-D interrogation and remoteCRT-D monitoring via [employer]'s [employer] serviceas scheduled. 6. F/u with Dr. Vasquez post discharge Further plans are to follow. May be discharged cardiac standpoint Roger Alicia MD
[2019-10-31 10:39] LABS: EOS % 6.3 % (0-4.5); HEMATOCRIT 38.6 % (32.4-45.2); HEMOGLOBIN 12.7 GM/dL (10.7-15.3); LYMPH % 31.4 % (8-40); MCH 29.4 pg (25.7-33.7); MCHC 32.9 g/dl (32.0-36.0); MEAN CELL VOLUME 89.5 fl (80-96); MONO % 9.3 % (3.8-10.2); PLATELET COUNT 116 K/MM3 (134-434); RBC 4.31 M/mm3 (3.60-5.2); RDW 14.2 % (11.6-15.6); WHITE BLOOD COUNT 3.4 K/mm3 (4.0-10.0)
[2019-10-31] MEDS ORDERED: SODIUM CHLORIDE 0.45% 1,000 ML IV SCH (11:04)
--- NOTE | 2019-10-31 11:04 | PN ---
Progress Note, Physician History of Present Illness: Pt seen and examined at bedside. She is awake and alert. She denies shortness of breath. - Current Medication List Current Medications: Active Medications Albuterol/Ipratropium (Duoneb -) 1 amp NEB RQID [facility] Last Admin: 10/31/19 08:51 Dose: Not Given Documented by: Amiodarone HCl (Cordarone -) 400 mg PO DAILY [facility] Last Admin: 10/31/19 10:05 Dose: 400 mg Documented by: Aspirin (Asa -) 81 mg PO DAILY [facility] Last Admin: 10/31/19 10:05 Dose: 81 mg Documented by: Sodium Chloride (1/2 Normal Saline) 1,000 mls @ 75 mls/hr IV ASDIR [facility] Last Admin: 10/30/19 13:51 Dose: 75 mls/hr Documented by: Metoprolol Succinate (Toprol Xl -) 100 mg PO BID [facility] Last Admin: 10/31/19 10:05 Dose: 100 mg Documented by: Pantoprazole Sodium (Protonix -) 40 mg PO ACBK [facility] Last Admin: 10/31/19 06:57 Dose: 40 mg Documented by: Pregabalin (Lyrica -) 100 mg PO BID [facility] Last Admin: 10/31/19 10:05 Dose: 100 mg Documented by: Tacrolimus (Prograf) 1 mg PO HS [facility] Last Admin: 10/30/19 23:09 Dose: 1 mg Documented by: Tacrolimus (Prograf) 1.5 mg PO DAILY [facility] Last Admin: 10/31/19 10:06 Dose: 1.5 mg Documented by: - Objective Vital Signs: Vital Signs Temperature 98.1 F 10/31/19 09:00 Pulse Rate 60 10/31/19 09:00 Respiratory Rate 18 10/31/19 09:00 Blood Pressure 137/72 10/31/19 09:00 O2 Sat by Pulse Oximetry (%) 98 10/31/19 09:00 Constitutional: Yes: Calm Eyes: Yes: Conjunctiva Clear HENT: Yes: Atraumatic Neck: Yes: Supple Cardiovascular: Yes: S1, S2 Respiratory: Yes: CTA Bilaterally Gastrointestinal: Yes: Soft Genitourinary: Yes: WNL Musculoskeletal: Yes: WNL Edema: No Integumentary: Yes: WNL Neurological: Yes: Oriented Psychiatric: Yes: Oriented Labs: CBC, BMP 10/31/19 06:55 10/31/19 06:55 INR, PTT INR 0.87 (0.83-1.09) 10/27/19 21:15 Problem List - Problems (1) Kidney transplant recipient Code(s): Z94.0 - KIDNEY TRANSPLANT STATUS (2) Chest pain Code(s): R07.9 - CHEST PAIN, UNSPECIFIED Qualifiers: Chest pain type: precordial pain Qualified Code(s): R07.2 - Precordial pain (3) Renal insufficiency Code(s): N28.9 - DISORDER OF KIDNEY AND URETER, UNSPECIFIED Assessment/Plan Current Medications Generic Name Dose Route Start Last Admin Trade Name Freq PRN Reason Stop Dose Admin Albuterol/Ipratropium 1 amp 10/31/19 08:00 10/31/19 08:51 Duoneb - NEB Not Given RQID [facility] Amiodarone HCl 400 mg 10/31/19 10:00 10/31/19 10:05 Cordarone - PO 400 mg DAILY [facility] Administration Aspirin 81 mg 10/28/19 10:00 10/31/19 10:05 Asa - PO 81 mg DAILY [facility] Administration Sodium Chloride 1,000 mls @ 75 mls/hr 10/30/19 12:30 10/30/19 13:51 1/2 Normal Saline IV 75 mls/hr ASDIR [facility] Administration Metoprolol Succinate 100 mg 10/28/19 10:00 10/31/19 10:05 Toprol Xl - PO 100 mg BID [facility] Administration Pantoprazole Sodium 40 mg 10/28/19 07:00 10/31/19 06:57 Protonix - PO 40 mg ACBK [facility] Administration Pregabalin 100 mg 10/28/19 10:00 10/31/19 10:05 Lyrica - PO 100 mg BID [facility] Administration Tacrolimus 1 mg 10/28/19 22:00 10/30/19 23:09 Prograf PO 1 mg HS [facility] Administration Tacrolimus 1.5 mg 10/28/19 10:00 10/31/19 10:06 Prograf PO 1.5 mg DAILY [facility] Administration Impression 1. kidney transplant 2. chest pain 3. a-fib 4. cad 5. cataracts 6. aicd firing from v-tach 7. hyperkalemia 8. CKD 9. SHANITA Plan - renal function is improving - decrease rate of fluids - repeat labs in am - lasix on hold - fena is low, consistent with pre-renal disease - follow prograf level - potassium is improved - avoid nepnrotoxins - discussed with medical team
--- NOTE | 2019-10-31 15:01 | PN ---
Physical Exam: SUBJECTIVE: Patient seen and examined at bedside. Patient denies further chest pain or abdominal pain. Patient reports feeling much better than when admitted. Denies any acute overnight events. OBJECTIVE: Vital Signs Period Temp Pulse Resp BP Sys/Bass Pulse Ox Last 24 Hr 97.5 F-98.1 F 60-73 18-20 133-145/51-80 93-98 GENERAL: The patient is awake, alert, and fully oriented, in no acute distress. LUNGS: Breath sounds equal, clear to auscultation bilaterally, no wheezes, no crackles, no accessory muscle use. HEART: Regular rate and IRREGULAR S1, S2 without murmur, rub or gallop. ABDOMEN: Soft, mild epigastric tenderness, multiple scars from abdominal surgeries. Bowel Sounds normal. EXTREMITIES: 2+ pulses, warm, well-perfused, no edema. SKIN: Warm, dry, normal turgor, no rashes or lesions noted Laboratory Results - last 24 hr 10/30/19 10/31/19 10/31/19 16:15 06:55 06:55 WBC 3.4 L RBC 4.31 Hgb 12.7 Hct 38.6 MCV 89.5 MCH 29.4 MCHC 32.9 RDW 14.2 Plt Count 116 L MPV 12.0 H Absolute Neuts (auto) 1.8 Neutrophils % 52.0 Lymphocytes % 31.4 Monocytes % 9.3 Eosinophils % 6.3 H Basophils % 1.0 Nucleated RBC % 0 Sodium 142 Potassium 4.7 Chloride 109 H Carbon Dioxide 25 Anion Gap 8 BUN 36.1 H Creatinine 1.7 H Est GFR (CKD-EPI)AfAm 38.67 Est GFR (CKD-EPI)NonAf 33.36 Random Glucose 103 Calcium 8.6 Total Bilirubin 0.6 AST 14 L ALT 15 Alkaline Phosphatase 67 Total Protein 6.2 L Albumin 3.5 Urine Color Yellow Urine Appearance Clear Urine pH 5.0 Ur Specific [place] 1.019 Urine Protein Negative Urine Glucose (UA) Negative Urine Ketones Negative Urine Blood Negative Urine Nitrite Negative Urine Bilirubin Negative Urine Urobilinogen 0.2 Ur Leukocyte Esterase 1+ H Urine WBC (Auto) 69 Urine RBC (Auto) 4 Urine Casts (Auto) 0 U Epithel Cells (Auto) >36 Urine Bacteria (Auto) 543 Active Medications Generic Name Dose Route Start Last Admin Trade Name Freq PRN Reason Stop Dose Admin Albuterol/Ipratropium 1 amp 10/31/19 08:00 10/31/19 12:10 Duoneb - NEB Not Given RQID [facility] Amiodarone HCl 400 mg 10/31/19 10:00 10/31/19 10:05 Cordarone - PO 400 mg DAILY [facility] Administration Aspirin 81 mg 10/28/19 10:00 10/31/19 10:05 Asa - PO 81 mg DAILY [facility] ANTH[facility] Administration Sodium Chloride 1,000 mls @ 40 mls/hr 10/31/19 11:04 10/31/19 11:40 1/2 Normal Saline IV 40 mls/hr ASDIR [facility]TH[facility] Administration Metoprolol Succinate 100 mg 10/28/19 10:00 10/31/19 10:05 Toprol Xl - PO 100 mg BID [facility]TH[facility] Administration Pantoprazole Sodium 40 mg 10/28/19 07:00 10/31/19 06:57 Protonix - PO 40 mg ACBK [facility] Administration Pregabalin 100 mg 10/28/19 10:00 10/31/19 10:05 Lyrica - PO 100 mg BID [facility] Administration Tacrolimus 1 mg 10/28/19 22:00 10/30/19 23:09 Prograf PO 1 mg HS [facility] Administration Tacrolimus 1.5 mg 10/28/19 10:00 10/31/19 10:06 Prograf PO 1.5 mg DAILY [facility] Administration ASSESSMENT/PLAN: Ms. Cr is a 54F with an extensive history including ESRD with AVF located in the left upper extremity, kidney transplant ' & ', Systolic CHF (EF 20-25% 05/05) s/p AICD, Afib not on AC due to hx of pulmonary hemorrhage presenting to the hospital for localized substernal chest pain without radiation and shortness of breath. #Chest pain - localized substernally without radiaton - patient endorses chest pain resolution - Echo in 05/05 reveals EF of 20-25% - cardio initially treated with IV lasix due to acute decompensation - Lasix DC'd - cardiology recommendation is to continue - metoprolol, entresto, and spironolactone - Patient was not on these medications at home at the recommendation of kidney transplant physician at [place] (Dr. Gonzales) # Afib - paroxysmal v-tach - AICD shock on 10/25 - cardiology consulted - recommends outpatient EP evaluation and VT ablation, watchmen procedure - amiodarone 400mg QD #SHANITA - Hyperkalemia - resolved - Patient's Cr. baseline is normally 1.5 - Currently 1.7 will continue to treat via IVF - Will continue to monitor for improving Cr - Nephrology on board (Dr. Dasilva) - Tacrolimus levels pending #GERD - patient on PPI trial #HTN - patient will have metoprolol succinate increased to 100mg BID #DVT px - SCD #Dispo - PT - patient tolerated ambulation well 150ft Visit type - Emergency Visit Emergency Visit: Yes ED Registration Date: 10/27/19 Care time: The patient presented to the Emergency Department on the above date and was hospitalized for further evaluation of their emergent condition. - New Patient This patient is new to me today: No - Critical Care Critical Care patient: No - Discharge Referral Referred to [facility] Med P.C.: No ATTENDING PHYSICIAN STATEMENT I saw and evaluated the patient. I reviewed the resident's note and discussed the case with the resident. I agree with the resident's findings and plan as documented. SUBJECTIVE: OBJECTIVE: ASSESSMENT AND PLAN:
--- NOTE | 2019-10-31 15:02 | PN ---
Teaching Attending Note Name of Resident: Poncho Hemphill ATTENDING PHYSICIAN STATEMENT I saw and evaluated the patient. I reviewed the resident's note and discussed the case with the resident. I agree with the resident's findings and plan as documented. SUBJECTIVE: Feels well - no further chest discomfort. No SOB. Chronic cough. No further nausea/vomiting. No fever/chills. No dysuria/hematuria. OBJECTIVE: Afebrile, Hemodynamically stable. Last Vital Signs Temp Pulse Resp BP Pulse Ox 98.1 F 60 18 137/72 98 10/31/19 09:00 10/31/19 09:00 10/31/19 09:00 10/31/19 09:00 10/31/19 09:00 Heart - S1, S2, Irregular Lungs - clear to auscultation Abdomen - Soft, mild epigastric tenderness, multiple scars from abdominal surgeries. Bowel Sounds normal. Extremities - no calf tenderness, trace edema. L forearm AV fistula. Neuro - AAO x 3. Tone/Power normal all 4 extremities. Laboratory Results - last 24 hr 10/30/19 10/31/19 10/31/19 16:15 06:55 06:55 WBC 3.4 L RBC 4.31 Hgb 12.7 Hct 38.6 MCV 89.5 MCH 29.4 MCHC 32.9 RDW 14.2 Plt Count 116 L MPV 12.0 H Absolute Neuts (auto) 1.8 Neutrophils % 52.0 Lymphocytes % 31.4 Monocytes % 9.3 Eosinophils % 6.3 H Basophils % 1.0 Nucleated RBC % 0 Sodium 142 Potassium 4.7 Chloride 109 H Carbon Dioxide 25 Anion Gap 8 BUN 36.1 H Creatinine 1.7 H Est GFR (CKD-EPI)AfAm 38.67 Est GFR (CKD-EPI)NonAf 33.36 Random Glucose 103 Calcium 8.6 Total Bilirubin 0.6 AST 14 L ALT 15 Alkaline Phosphatase 67 Total Protein 6.2 L Albumin 3.5 Urine Color Yellow Urine Appearance Clear Urine pH 5.0 Ur Specific [place] 1.019 Urine Protein Negative Urine Glucose (UA) Negative Urine Ketones Negative Urine Blood Negative Urine Nitrite Negative Urine Bilirubin Negative Urine Urobilinogen 0.2 Ur Leukocyte Esterase 1+ H Urine WBC (Auto) 69 Urine RBC (Auto) 4 Urine Casts (Auto) 0 U Epithel Cells (Auto) >36 Urine Bacteria (Auto) 543 Current Medications Generic Name Dose Route Start Last Admin Trade Name Arnie PRN Reason Stop Dose Admin Albuterol/Ipratropium 1 amp 10/31/19 08:00 10/31/19 12:10 Duoneb - NEB Not Given RQID MARK ANTHONY Amiodarone HCl 400 mg 10/31/19 10:00 10/31/19 10:05 Cordarone - PO 400 mg DAILY MARK ANTHONY Administration Aspirin 81 mg 10/28/19 10:00 10/31/19 10:05 Asa - PO 81 mg DAILY MARK ANTHONY Administration Sodium Chloride 1,000 mls @ 40 mls/hr 10/31/19 11:04 10/31/19 11:40 1/2 Normal Saline IV 40 mls/hr ASDIR MARK ANTHONY Administration Metoprolol Succinate 100 mg 10/28/19 10:00 10/31/19 10:05 Toprol Xl - PO 100 mg BID MARK ANTHONY Administration Pantoprazole Sodium 40 mg 10/28/19 07:00 10/31/19 06:57 Protonix - PO 40 mg ACBK MARK ANTHONY Administration Pregabalin 100 mg 10/28/19 10:00 10/31/19 10:05 Lyrica - PO 100 mg BID MARK ANTHONY Administration Tacrolimus 1 mg 10/28/19 22:00 10/30/19 23:09 Prograf PO 1 mg HS MARK ANTHONY Administration Tacrolimus 1.5 mg 10/28/19 10:00 10/31/19 10:06 Prograf PO 1.5 mg DAILY MARK ANTHONY Administration Home Medications Medication Instructions Recorded Pregabalin [Lyrica] 100 mg PO BID 05/13/16 Tacrolimus [Prograf] 1 mg PO BID 05/13/16 Esomeprazole Magnesium [Nexium 40 mg PO BID 10/27/19 24Hr] Tacrolimus Anhydrous [Prograf] 0.5 mg PO HS 10/28/19 Amiodarone HCl [Cordarone -] 400 mg PO DAILY 30 Days #30 tablet 10/29/19 Metoprolol Succinate [Toprol XL -] 100 mg PO BID 30 Days #60 10/29/19 tab.sr.24h ASSESSMENT AND PLAN: 54 year old female with history of ESRD (previously on HD via LUE AVF, s/p kidney transplants 1997/2004, CAD s/p NH at age 18 s/p PCI, Chronic Systolic CHF, s/p PPM/AICD, prolonged hospitalization for pulmonary hemorrhage due to Eliquis (long stay in ICU at [facility]; tracheostomy reversed), Atrial Fibrillation, Asthma, IBS, s/p resection of Sigmoid adenoma (age 18), Neuropathy, Lundy's esophagus and Thyromegaly presents with right-sided and substernal chest pain with some SOB. She recently saw Cardiology as out-patient 10/25 as her AICD fired due to paroxysmal ventricular tachycardia. 1. Atypical Chest discomfort ?etiology Elevated BNP, Cardiomegaly and increased interstitial markings on CXR EF 20-25% 05/05 Cardiology initially treated for Acute decompensation of Systolic CHF/Dilated Cardiomyopathy with IV Lasix - now discontinued TropI neg x 2. ECG - Atrial fibrillation, no acute changes. Evaluated by Cardiology and started on IV Lasix, now stopped due to SHANITA. Daily weight, I/Os Continue Metoprolol (dose increased). Cardiology recommends resuming Entresto and to transition from Chlorthalidone to Spironolactone - however, patient is not on either of these medications at home - will hold off for now due to borderline BP/SHANITA/Hyperkalemia. For follow up with Dr. Vasquez as out-patient for further medication titration/optimization. 2. Paroxysmal Atrial fibrillation with paroxysmal ventricular tachycardia Required AICD shock 10/25 Cardiology recommends out-patient EP study and eval for VT ablation. To continue Amiodarone 400mg daily.as per Cardio Metoprolol dose increased Off AC due to history of Pulmonary hemorrhage - Watchman device/left atrial appendage closure recommended by Cardiology. 3. SHANITA with Hyperkalemia - Creat improving, currently at 1.7, likely sec to Lasix diuresis Lasix held. Continue gentle hydration, Nephrology following 4. ESRD s/p Renal transplant x 2. SHANITA due to lasix diuresis - gentle hydration ongoing. Continue Tacrolimus, level pending. 5. GERD ?Gastritis causing retrosternal discomfort PPI 6. HTN - Continue Metoprolol (dose increased). On Norvasc at home - held for now due to borderline BP. 7. Neuropathy - continue Lyrica. DVT Px - SCDs. Declines Lovenox due to prior pulmonary hemorrhage. Platelets trending down, will monitor. Dispo - PT eval
[2019-10-31] MEDS: TACROLIMUS ANHYDROUS 1 MG CAPSULE PO SCH (22:00)
--- NOTE | 2019-11-01 06:24 | PN ---
Progress Note (short form) - Note Progress Note: Chief Complaint: Events noted, notes reviewed, resting in bed, reports dyspnea with physical activity although clinically improved, denies any chest discomfort, no further ventricular arrhythmia noted History of Present Illness: Seen and examined on telemetry. Events noted, notes reviewed, resting in bed, reports dyspnea with physical activity although clinically improved, denies any chest discomfort, no further ventricular arrhythmia noted Patient can be discharged home from the cardiovascular point of view on Amiodarone therapy at 400 mg twice daily for 1 week and subsequent dose decreased to 400 mg once daily, follow-up visit to be scheduled with the electrophysiology service at [facility] for further management Medications: Current Medications Generic Name Dose Route Start Last Admin Trade Name Freq PRN Reason Stop Dose Admin Albuterol/Ipratropium 1 amp 10/31/19 08:00 10/31/19 20:40 Duoneb - NEB 1 amp RQID MARK ANTHONY Administration Amiodarone HCl 400 mg 10/31/19 10:00 10/31/19 10:05 Cordarone - PO 400 mg DAILY MARK ANTHONY Administration Aspirin 81 mg 10/28/19 10:00 10/31/19 10:05 Asa - PO 81 mg DAILY MARK ANTHONY Administration Metoprolol Succinate 100 mg 10/28/19 10:00 10/31/19 22:00 Toprol Xl - PO 100 mg BID MARK ANTHONY Administration Pantoprazole Sodium 40 mg 10/28/19 07:00 10/31/19 06:57 Protonix - PO 40 mg ACBK MARK ANTHONY Administration Pregabalin 100 mg 10/28/19 10:00 10/31/19 22:00 Lyrica - PO 100 mg BID MARK ANTHONY Administration Tacrolimus 1 mg 10/28/19 22:00 10/31/19 22:00 Prograf PO 1 mg HS MARK ANTHONY Administration Tacrolimus 1.5 mg 10/28/19 10:00 10/31/19 10:06 Prograf PO 1.5 mg DAILY MARK ANTHONY Administration Review of Systems Constitutional: denies Chills or Fever Respiratory: reports: Dyspnea Cardiovascular: As noted above Gastrointestinal: denies Nausea, Vomiting, Diarrhea or Constipation or Abdominal Discomfort Genitourinary: No Symptoms Reported Musculoskeletal: No Symptoms Reported Vital Signs: Last Vital Signs Temp Pulse Resp BP Pulse Ox 98.2 F 61 20 155/83 93 L 11/01/19 02:00 11/01/19 02:00 11/01/19 02:00 11/01/19 02:00 11/01/19 02:00 Intake & Output 10/29/19 10/30/19 10/31/19 11/01/19 23:59 23:59 23:59 23:59 Intake Total 1000 2150 2275 Output Total 300 Balance 700 2150 2275 Weight 147 lb 152 lb 3.2 oz 154 lb 6.4 oz Neck: Supple Negative JVD Respiratory: Diminished Breath Sounds at the Bases Cardiovascular: S1 S2 Regular Rate Rhythm Gastrointestinal: Soft Benign Normal Bowel Sounds Ext: Negative Edema Labs: CBC, BMP 11/01/19 06:12 11/01/19 06:12 CBC, BMP 10/31/19 06:55 10/31/19 06:55 Hepatic Panel Total Bilirubin 0.6 mg/dL (0.2-1) 10/31/19 06:55 AST 14 U/L (15-37) L 10/31/19 06:55 ALT 15 U/L (13-61) 10/31/19 06:55 Alkaline Phosphatase 67 U/L (45-117) 10/31/19 06:55 Albumin 3.5 g/dl (3.4-5.0) 10/31/19 06:55 INR, PTT INR 0.87 (0.83-1.09) 10/27/19 21:15 Assessment/Plan ASSESSMENT: 1. Clinical presentation is consistent with acute on chronic class II-III [place] [employer] classification systolic left ventricular failure related to #2/clinically resolving 2. Ischemic dilated cardiomyopathy/LVEF 30-35% 3.Coronary artery disease status post remote myocardial infarction at age 18 post percutaneous coronary intervention/report of procedure not available angina pectoris, clinically stable 4. Paroxysmal ventricular tachycardia post CRANE HOIST OR LIFT OPERATOR-D/[employer]'s MRI conditional device (Amplia MRI- [id number]/SureScan) with recent appropriate therapy for sustained VT and subsequent VF 5. Paroxysmal atrial fibrillation currently off of anticoagulation therapy related to hemoptysis, [id number] score of 4 - Watchman device/left atrial appendage closure device implantation recommended but has not been performed as of yet - patient reluctance to proceed with the above-noted procedure 6.History of paroxysmal supraventricular tachycardia, cannot exclude paroxysmal atypical atrial flutter. 7.Hypertensive cardiovascular disease, labile blood pressurenot at goal 8. Hypercholesterolemia 9. History of seizure disorder. 10. History of chronic bronchitis 11. History of gastroesophageal reflux disease with Lundy's esophagus. 12. Chronic kidney disease post renal transplantation. PLAN: 1. Continue Lasix therapy and dose titration as needed with close monitoring of renal function and electrolytes 2. As outlined above patient can be discharged home on Amiodarone therapy at 400 mg twice daily for 1 week and subsequent dose decreased to 400 mg once daily, eventual outpatient referral to the electrophysiology service at [facility] for further management including possible VT ablation 3. Continue Toprol XL 4. Consideration forEntrestotherapy addition once renal function is at baseline/outpatient initiation in consultation with her transplant aegis operations specialist 5. Consideration for Aldactone therapy addition once renal function is at baseline/outpatient initiation in consultation with her transplant aegis operations specialist Patient can be discharged home from the cardiovascular point of view and follow- up in the office in 1 week post discharge Campbell Vasquez MD
[2019-11-01] MEDS: PANTOPRAZOLE 40 MG TABLET PO SCH (06:27)
[2019-11-01 07:06] VITALS: TEMP 97.6
[2019-11-01 07:14] LABS: ALBUMIN 3.6 g/dl (3.4-5.0); BILIRUBIN,TOTAL 0.4 mg/dL (0.2-1); BLOOD UREA NITROGEN 27.9 mg/dL (7-18); CALCIUM 9.2 mg/dL (8.5-10.1); CREATININE 1.4 mg/dL (0.55-1.3); POTASSIUM 4.5 mmol/L (3.5-5.1); TOT PROT 6.3 g/dl (6.4-8.2)
[2019-11-01 07:17] LABS: BASO % 1.1 % (0-2.0); EOS % 5.8 % (0-4.5); HEMATOCRIT 39.2 % (32.4-45.2); HEMOGLOBIN 12.8 GM/dL (10.7-15.3); LYMPH % 35.4 % (8-40); MCHC 32.8 g/dl (32.0-36.0); MEAN CELL VOLUME 88.4 fl (80-96); MEAN PLT VOLUME 11.5 fl (7.5-11.1); MONO % 9.2 % (3.8-10.2); NEUT % 48.5 % (42.8-82.8); PLATELET COUNT 118 K/MM3 (134-434); RBC 4.43 M/mm3 (3.60-5.2); RDW 14.2 % (11.6-15.6); WHITE BLOOD COUNT 3.6 K/mm3 (4.0-10.0)
[2019-11-01] MEDS: ALBUTEROL SO4 2.5/IPRATROPIUM 0.5 INH SOL 3 ML VIAL.NEB. NEB SCH (08:58)
[2019-11-01 09:56] VITALS: BP 141/95; PULSE 59
[2019-11-01] MEDS ORDERED: AMIODARONE HCL 200 MG TABLET PO SCH (10:00)
[2019-11-01] MEDS: ASPIRIN 81 MG CHEWABLE TABLETS PO SCH (10:05)
[2019-11-01] MEDS: PREGABALIN 100 MG CAPSULE PO SCH (10:06)
[2019-11-01] MEDS: TACROLIMUS 0.5 MG CAPSULE PO SCH (10:06)
--- NOTE | 2019-11-01 13:38 | PN ---
Progress Note, Physician History of Present Illness: Pt seen and examined at bedside. She is awake and alert. She denies shortness of breath. - Current Medication List Current Medications: Active Medications Albuterol/Ipratropium (Duoneb -) 1 amp NEB RQID [facility] Last Admin: 11/01/19 08:58 Dose: Not Given Documented by: Amiodarone HCl (Cordarone -) 400 mg PO BID [facility] Last Admin: 11/01/19 10:05 Dose: 400 mg Documented by: Aspirin (Asa -) 81 mg PO DAILY [facility] Last Admin: 11/01/19 10:05 Dose: 81 mg Documented by: Metoprolol Succinate (Toprol Xl -) 100 mg PO BID [facility] Last Admin: 11/01/19 10:05 Dose: 100 mg Documented by: Pantoprazole Sodium (Protonix -) 40 mg PO ACBK [facility] Last Admin: 11/01/19 06:27 Dose: 40 mg Documented by: Pregabalin (Lyrica -) 100 mg PO BID [facility] Last Admin: 11/01/19 10:06 Dose: 100 mg Documented by: Tacrolimus (Prograf) 1 mg PO HS [facility] Last Admin: 10/31/19 22:00 Dose: 1 mg Documented by: Tacrolimus (Prograf) 1.5 mg PO DAILY [facility] Last Admin: 11/01/19 10:06 Dose: 1.5 mg Documented by: - Objective Vital Signs: Vital Signs Temperature 97.6 F 11/01/19 06:00 Pulse Rate 59 L 11/01/19 09:55 Respiratory Rate 18 11/01/19 09:55 Blood Pressure 141/95 11/01/19 09:55 O2 Sat by Pulse Oximetry (%) 97 11/01/19 09:55 Constitutional: Yes: Calm Eyes: Yes: Conjunctiva Clear HENT: Yes: Atraumatic Neck: Yes: Supple Cardiovascular: Yes: S1, S2 Respiratory: Yes: CTA Bilaterally Gastrointestinal: Yes: Normal Bowel Sounds, Soft Genitourinary: Yes: WNL Musculoskeletal: Yes: WNL Edema: No Neurological: Yes: Oriented Psychiatric: Yes: Oriented Labs: CBC, BMP 11/01/19 06:12 11/01/19 06:12 INR, PTT INR 0.87 (0.83-1.09) 10/27/19 21:15 Problem List - Problems (1) Kidney transplant recipient Code(s): Z94.0 - KIDNEY TRANSPLANT STATUS (2) Chest pain Code(s): R07.9 - CHEST PAIN, UNSPECIFIED Qualifiers: Chest pain type: precordial pain Qualified Code(s): R07.2 - Precordial pain (3) Renal insufficiency Code(s): N28.9 - DISORDER OF KIDNEY AND URETER, UNSPECIFIED Assessment/Plan Current Medications Generic Name Dose Route Start Last Admin Trade Name Freq PRN Reason Stop Dose Admin Albuterol/Ipratropium 1 amp 10/31/19 08:00 11/01/19 08:58 Duoneb - NEB Not Given RQID MARK ANTHONY Amiodarone HCl 400 mg 11/01/19 10:00 11/01/19 10:05 Cordarone - PO 400 mg BID MARK ANTHONY Administration Aspirin 81 mg 10/28/19 10:00 11/01/19 10:05 Asa - PO 81 mg DAILY MARK ANTHONY Administration Metoprolol Succinate 100 mg 10/28/19 10:00 11/01/19 10:05 Toprol Xl - PO 100 mg BID MARK ANTHONY Administration Pantoprazole Sodium 40 mg 10/28/19 07:00 11/01/19 06:27 Protonix - PO 40 mg ACBK MARK ANTHONY Administration Pregabalin 100 mg 10/28/19 10:00 11/01/19 10:06 Lyrica - PO 100 mg BID MARK ANTHONY Administration Tacrolimus 1 mg 10/28/19 22:00 10/31/19 22:00 Prograf PO 1 mg HS MARK ANTHONY Administration Tacrolimus 1.5 mg 10/28/19 10:00 11/01/19 10:06 Prograf PO 1.5 mg DAILY MARK ANTHONY Administration Impression 1. kidney transplant 2. chest pain 3. a-fib 4. cad 5. cataracts 6. aicd firing from v-tach 7. hyperkalemia 8. CKD 9. SHANITA Plan - renal function is improved - pt will follow with Dr Gonzales to have prograf level checked - follow repeat prograf (levels were not drawn at correct times) - potassium stable - hold lasix - will need cardio follow up as well - fena is low, consistent with pre-renal disease, pt did respond to fluids - avoid nepnrotoxins - discussed with medical team
--- NOTE | 2019-11-01 16:02 | PN ---
Teaching Attending Note Name of Resident: Hilary Turner ATTENDING PHYSICIAN STATEMENT I saw and evaluated the patient. I reviewed the resident's note and discussed the case with the resident. I agree with the resident's findings and plan as documented. SUBJECTIVE: Patient feels well, wants to go home OBJECTIVE: Vital Signs Period Temp Pulse Resp BP Sys/Bass Pulse Ox Last 24 Hr 97.6 F-98.2 F 59-61 18-20 133-155/69-95 93-97 As noted in the residents note ASSESSMENT AND PLAN: 54 y/o F who presented for R sided chest pain R Sided chest pain: now resolved Plan for ICD interrogation as an outpatient -- patient had AICD fire on 10/25 Patient feels well this morning and wants to go home Patients medication adjusted per cardiology note, please see medication reconciliation for final medication list Hx of Renal Transplant: Renal function at baseline Please see discharge summary for additional information
--- NOTE | 2019-11-01 18:30 | DS ---
Physical Exam: SUBJECTIVE: Patient seen and examined OBJECTIVE: Vital Signs Period Temp Pulse Resp BP Sys/Bass Pulse Ox Last 24 Hr 97.6 F-98.2 F 59-61 18-20 133-155/69-95 93-97 PHYSICAL EXAM GENERAL: The patient is awake, alert, and fully oriented, in no acute distress. HEAD: Normal with no signs of trauma. EYES: PERRL, extraocular movements intact, sclera anicteric, conjunctiva clear. ENT: Ears normal, nares patent, oropharynx clear without exudates, moist mucous membranes. NECK: Trachea midline, full range of motion, supple. LUNGS: Breath sounds equal, clear to auscultation bilaterally, no wheezes, no crackles, no accessory muscle use. HEART: Regular rate and rhythm, S1, S2 without murmur, rub or gallop. ABDOMEN: Soft, nontender, nondistended, normoactive bowel sounds, no guarding, no rebound, no hepatosplenomegaly, no masses. EXTREMITIES: 2+ pulses, warm, well-perfused, no edema. NEUROLOGICAL: Cranial nerves II through XII grossly intact. Normal speech, gait not observed. PSYCH: Normal mood, normal affect. SKIN: Warm, dry, normal turgor, no rashes or lesions noted. LABS Laboratory Results - last 24 hr 10/28/19 10/30/19 10/30/19 03:36 06:40 13:00 WBC RBC Hgb Hct MCV MCH MCHC RDW Plt Count MPV Absolute Neuts (auto) Neutrophils % Lymphocytes % Monocytes % Eosinophils % Basophils % Nucleated RBC % Sodium Potassium Chloride Carbon Dioxide Anion Gap BUN Creatinine Est GFR (CKD-EPI)AfAm Est GFR (CKD-EPI)NonAf Random Glucose Calcium Total Bilirubin AST ALT Alkaline Phosphatase Total Protein Albumin Urine Eosinophils None seen Amiodarone 6.2 H Noramiodarone None detected Tacrolimus 9.1 11/01/19 11/01/19 06:12 06:12 WBC 3.6 L RBC 4.43 Hgb 12.8 Hct 39.2 MCV 88.4 MCH 29.0 MCHC 32.8 RDW 14.2 Plt Count 118 L MPV 11.5 H Absolute Neuts (auto) 1.7 Neutrophils % 48.5 Lymphocytes % 35.4 Monocytes % 9.2 Eosinophils % 5.8 H Basophils % 1.1 Nucleated RBC % 0 Sodium 144 Potassium 4.5 Chloride 111 H Carbon Dioxide 26 Anion Gap 8 BUN 27.9 H Creatinine 1.4 H Est GFR (CKD-EPI)AfAm 48.90 Est GFR (CKD-EPI)NonAf 42.19 Random Glucose 95 Calcium 9.2 Total Bilirubin 0.4 AST 14 L ALT 16 Alkaline Phosphatase 70 Total Protein 6.3 L Albumin 3.6 Urine Eosinophils Amiodarone Noramiodarone Tacrolimus HOSPITAL COURSE: Date of Admission:10/27/19 Tayo is a 54F w an extensive pmh including kidney transplants in 1997 and 2004, [place], AICD, chronic systolic CHF, prolonged hospitalization for pulmonary hemorrhage due to eliquis, afib not on AC, and ESRD presenting to the ED for R sided substernal chest pain and SOB. Ptient was managed by cardiology and it was found her AICD fired due to paroxysmal V tach. Cardiology rec patient to follow up outpatient EP study and evaluation for VT ablation. Medication regimen for amiodarone, metoprolol, entresto, and spironolactone managed with cardiology. The patient was recommended to follow up outpatient with her rehabilitation aide/scheduler. Patient was managed with nephrology following renal function elevated levels due to lasix administration. Patient was montored closely due to kidney transplant with renal ultrasound. Patient was treated with gentle fluids and her bun/cr returned to baseline. Patient was recomended to follow up outpatient with nephrology and renal transplant doctor (Dr. Gonzales) at [facility]. Date of Discharge: 11/01/19 Minutes to complete discharge: 35 Discharge Summary Problems reviewed: Yes Reason For Visit: AUTOMATIC IMPLANTABLE CARDIOVERTER-DEFIBRILLATOR Condition: Good - Instructions Diet, Activity, Other Instructions: YOUR VISIT: You were admitted to the hospital for evaluation of chest discomfort and shortness of breath. While you were in the hospital, we evaluated you with lab work, blood work, and imaging including an ultrasound of your kidneys and an X-ray of your chest. We found that your symptoms were caused by activation of your pacemaker. You were evaluated by specialists during your hospital course - Nephrology (Dr. Dasilva) and Cardiology (Dr. Simone Mena). You were found to have mild kidney injury which we treated with fluids and daily monitoring of your labs. The cardiologists have made changes to your blood pressure and atrial fibrillation medications during your stay to better optimize your blood pressure. You will need to follow up with Dr. Vasquez to review your medications. Your kidney function had returned to normal and you had no further cardiac events, and are for discharge home. MEDICATIONS: Please START taking Amiodarone 400mg twice a day for the first week. (11/02/2019 - 11/09/2019) Please START taking Amiodarone 400mg once a day for the week after. (11/10/2019) Discuss this new medication with your primary care physician and your rehabilitation aide/scheduler. Your Metoprolol dose was changed to 100mg twice a day (once every 12 hours). Continue to take all other home medications as prescribed FOLLOW UPS: Please follow up with your Office Manager Executive Assistant Dr. Vasquez within one week of discharge. To optimize your medication regimen. A referral has been provided. Please follow up with your machine joiner cementer Dr. Ale Dasilva within one week of discharge to review your lab work. Please follow up with your kidney transplant doctor Dr. Gonzales within one week of discharge to review your hospital visit. Please visit your primary care provider within 2 weeks to review your hospital visit. (Dr. Salcedo) ADDITIONAL INSTRUCTIONS: You will discuss medications Entresto, and Chlorthalidone (water pill) with your rehabilitation aide/scheduler at your follow up appointment. You are being discharged to your home. Please return to the Emergency department if you are experiencing subjective fevers, chills, shortness of breath, chest pain, palpitations, abdominal pain, nausea, vomiting, any trauma or loss of consciousness, worsening or concerning symptoms. Referrals: Campbell Vasquez MD [Staff Physician] - 1 Week (follow up hospital visit s/p paroxysmal vtach) Jose Salcedo MD [Primary Care Provider] - 1 Week (follow up hospital visit s/p paroxysmal vtach) Ale Dasilva MD [Staff Physician] - 1 Week (renal transplant patient with ESRD on HD) Disposition: HOME - Home Medications Comprehensive Discharge Medication List: Ambulatory Orders Pregabalin [Lyrica] 100 mg PO BID 05/13/16 Tacrolimus [Prograf] 1 mg PO BID 05/13/16 Esomeprazole Magnesium [Nexium 24Hr] 40 mg PO BID 10/27/19 Tacrolimus Anhydrous [Prograf] 0.5 mg PO HS 10/28/19 Metoprolol Succinate [Toprol XL -] 100 mg PO BID 30 Days #60 tab.sr.24h 10/29/19 Amiodarone HCl 400 mg PO BID #36 tablet 11/01/19 - Discharge Referral Referred to [facility] No ATTENDING PHYSICIAN STATEMENT I saw and evaluated the patient. I reviewed the resident's note and discussed the case with the resident. I agree with the resident's findings and plan as documented. SUBJECTIVE: OBJECTIVE: ASSESSMENT AND PLAN:
== END 2019-11-01 14:46 | disposition home or self-care (01) | DRG 291 ==
LOC: JER 20:39 → JERBED 22:11 → J4S 10-28 18:53 → J4W 10-29 18:51
PROVIDERS: ADMIT Internal Medicine; ATTEND Internal Medicine
DX: I13.0 Hypertensive heart and chronic kidney disease with heart failure and stage 1 through stage 4 chronic kidney disease, or unspecified chronic kidney disease (principal); I50.43 Acute on chronic combined systolic (congestive) and diastolic (congestive) heart failure; T82.847A Pain due to cardiac prosthetic devices, implants and grafts, initial encounter; N17.9 Acute kidney failure, unspecified; Z94.0 Kidney transplant status; I47.2 Ventricular tachycardia; I42.0 Dilated cardiomyopathy; E87.5 Hyperkalemia; I48.0 Paroxysmal atrial fibrillation; R07.89 Other chest pain; K21.9 Gastro-esophageal reflux disease without esophagitis; G62.9 Polyneuropathy, unspecified; I25.10 Atherosclerotic heart disease of native coronary artery without angina pectoris; N18.9 Chronic kidney disease, unspecified; Y83.9 Surgical procedure, unspecified as the cause of abnormal reaction of the patient, or of later complication, without mention of misadventure at the time of the procedure; I25.5 Ischemic cardiomyopathy
CPT/HCPCS: 36415; 71045-TC-FY; 76776-TC; 80048; 80053; 80061; 80197; 80299; 81003; 82436; 82550; 82565; 82803; 83690; 83721; 83735; 83880; 84100; 84133; 84300; 84443; 84484; 85025; 85027; 85610; 85730; 86850; 86900; 86901; 87205; 93005; 93010; 94640; 97116-GP; 97161-GP; 99291; J0131; U0003